=== PATIENT | female | born 1960 | race Caucasian/White ===

== ENCOUNTER 2019-09-14 08:05 | Inpatient (IN) | payer BC ==
[2019-09-14] MEDS ORDERED: Ondansetron 4 MG/2 ML SDV IVPUSH ONE (08:14)
[2019-09-14] MEDS ORDERED: Morphine 2 MG/ML Syringe IVPUSH ONE (08:14)
[2019-09-14] MEDS ORDERED: Sodium Chloride 0.9% 1,000 ML IV SCH ×2 (08:15→09:45)
[2019-09-14] MEDS: Sodium Chloride 0.9% 10 ML Syringe FLUSH PRN (08:24)
[2019-09-14] MEDS ORDERED: Iopamidol 755 Mg/ML 100 ML Bottle IV ONE (08:32)
--- NOTE | 2019-09-14 08:41 | EDM.PDOC ---
ED HPI GENERAL MEDICAL PROBLEM - General Stated Complaint: abdominal pain Time Seen by Provider: 09/14/19 08:10 Source of Information: Reports: Patient History Limitations: Reports: No Limitations - History of Present Illness INITIAL COMMENTS - FREE TEXT/NARRATIVE: Patient presented to the ED because of abdominal pain which started after eating dinner last night. The pain is sharp and cramping,10,10 with associated nausea and vomiting x3. There is no fever/chills or any urinary symptoms. Her last bowel movement was last night and it was "fibery" according to her. She had 2 previous intraabdominal surgeries-hysterectomy and cholecystectomy. She also has a history of SBO 8 years ago which was medically managed. abdomen, generalized Pain Score (Numeric/FACES): 3 - Related Data Allergies Allergy/AdvReac Type Severity Reaction Status Date / Time No Known Allergies Allergy Verified 09/14/19 08:13 Home Meds: Home Meds Bifidobacterium Infantis [Align] 1 tab PO DAILY 09/14/19 [History] Calcium Carb/Vitamin D3/Vit K1 [Calcium + D Soft Chewable Tab] 2 tab PO DAILY [History] Estrogens, Conjugated [Premarin] 0.625 mg PO DAILY 09/14/19 [History] Folic Acid/Multivit-Min/Lutein [Multi-Vitamin Gummies] 2 tab PO DAILY 09/14/19 [ History] Lysine 1 tab PO DAILY PRN 09/14/19 [History] estradioL [Estring] 2 mg VAG Q3M 09/14/19 [History] ED ROS GENERAL - Review of Systems Review Of Systems: See Below Constitutional: Reports: No Symptoms HEENT: Reports: No Symptoms Respiratory: Reports: No Symptoms Cardiovascular: Reports: No Symptoms Endocrine: Reports: No Symptoms GI/Abdominal: Reports: Abdominal Pain, Nausea, Vomiting : Reports: No Symptoms Musculoskeletal: Reports: No Symptoms Skin: Reports: No Symptoms Neurological: Reports: No Symptoms Psychiatric: Reports: No Symptoms Hematologic/Lymphatic: Reports: No Symptoms ED EXAM, GENERAL - Physical Exam Exam: See Below Exam Limited By: No Limitations General Appearance: Alert, No Apparent Distress Nose: Normal Inspection, Normal Mucosa Throat/Mouth: Normal Inspection, Normal Lips Head: Atraumatic, Normocephalic Neck: Normal Inspection, Supple, Non-Tender Respiratory/Chest: No Respiratory Distress, Lungs Clear, Normal Breath Sounds Cardiovascular: Normal Peripheral Pulses, Regular Rate, Rhythm, No Edema, No Gallop GI/Abdominal: Normal Bowel Sounds, No Organomegaly, Other (decreased bowel sound , diffuse tenderness) Back Exam: Normal Inspection, Full Range of Motion Extremities: Normal Inspection, Normal Range of Motion, Non-Tender Neurological: Alert, Oriented, CN II-XII Intact, Normal Cognition, Normal Gait Psychiatric: Normal Affect, Normal Mood Skin Exam: Warm, Dry, Intact, Normal Color, No Rash Course - Vital Signs Text/Narrative:: Labs/EKG/CXR/Abd CT was discussed with patient and verbalized full understanding NPO NS 1 L bolus Zofran 4 mg IV x1 Morphine 2 mg IV x1 NGT insertion Surgical consult with Dr Barba who agreed with the above management and will see the patient at noon today. Last Recorded V/S: Last Vital Signs Temp 36.6 C 09/15/19 12:00 Pulse 67 09/15/19 12:00 Resp 18 09/15/19 12:00 BP 142/81 H 09/15/19 12:00 Pulse Ox 99 09/15/19 12:00 - Orders/Labs/Meds Orders: Active Orders 24 hr Category Date Time Status Pantoprazole [ProTONIX IV] Med 09/14/19 13:00 Active 40 mg IVPUSH Q24H Medication Orders Sodium Chloride (Normal Saline) 1,000 mls @ 999 mls/hr IV ASDIRECTED [facility] Last Admin: 09/14/19 08:19 Dose: 999 mls/hr Potassium Cl/Dextrose/Lact Ringer's (D5 Lr With 20 Meq Kcl) 1,000 mls @ 125 mls /hr IV Q8H [facility] Last Admin: 09/15/19 12:48 Dose: 125 mls/hr Ketorolac Tromethamine (Toradol) 30 mg IVPUSH Q6H PRN PRN Reason: Abdominal Pain Stop: 09/19/19 12:39 Last Admin: 09/15/19 02:17 Dose: 30 mg Admin: 09/14/19 19:37 Dose: 30 mg Admin: 09/14/19 13:27 Dose: 30 mg Ondansetron HCl (Zofran) 4 mg IVPUSH Q4H PRN PRN Reason: Nausea/Vomiting Last Admin: 09/14/19 21:46 Dose: 4 mg Admin: 09/14/19 13:32 Dose: 4 mg Pantoprazole Sodium (Protonix Iv) 40 mg IVPUSH Q24H SHAUN Last Admin: 09/15/19 13:07 Dose: 40 mg Admin: 09/14/19 13:22 Dose: 40 mg Sodium Chloride (Saline Flush) 10 ml FLUSH ASDIRECTED PRN PRN Reason: Keep Vein Open Last Admin: 09/14/19 08:24 Dose: 10 ml Labs: Laboratory Tests 09/14/19 09/14/19 09/14/19 Range/Units 08:05 08:05 08:05 WBC 9.8 (4.5-12.0) X10-3/uL RBC 5.08 (3.23-5.20) x10(6)uL Hgb 15.4 (11.5-15.5) g/dL Hct 47.0 (30.0-51.3) % MCV 92.6 (80-96) fL MCH 30.2 (27.7-33.6) pg MCHC 32.7 (32.2-35.4) g/dL RDW 12.7 (11.5-15.5) % Plt Count 302 (125-369) X10(3)uL MPV 8.0 (7.4-10.4) fL Add Manual Diff Yes Neutrophils % (Manual) 88 H (46-82) % Band Neutrophils % 2 (0-6) % Lymphocytes % (Manual) 9 L (13-37) % Monocytes % (Manual) 1 L (4-12) % PT 9.8 (9.0-11.1) sec INR 0.90 L (1.00-1.24) APTT 22.5 L (24.4-33.2) SECONDS D-Dimer, Quantitative (0.0-0.59) mg/LFEU Sodium 136 (135-145) mmol/L Potassium 4.1 (3.5-5.3) mmol/L Chloride 101 (100-110) mmol/L Carbon Dioxide 23 (21-32) mmol/L BUN 14 (7-18) mg/dL Creatinine 0.9 (0.55-1.02) mg/dL Est Cr Clr Drug Dosing 51.92 mL/min Estimated GFR (MDRD) > 60 (>60) BUN/Creatinine Ratio 15.6 (9-20) Glucose 157 H (80-116) mg/dL Lactic Acid (0.4-2.0) mmol/L Calcium 9.2 (8.6-10.2) mg/dL Total Bilirubin 0.8 (0.1-1.3) mg/dL AST 30 H (5-25) IU/L ALT 30 (12-36) U/L Alkaline Phosphatase 88 (56-112) IU/L Troponin I (4.0-60.3) pg/mL NT-Pro-B Natriuret Pep (<=125) pg/mL Total Protein 7.9 (6.0-8.0) g/dL Albumin 4.0 (3.2-4.6) g/dL Globulin 3.9 g/dL Albumin/Globulin Ratio 1.0 Amylase (25-115) U/L Lipase (73-393) U/L 09/14/19 09/14/19 09/14/19 Range/Units 08:05 08:05 08:05 WBC (4.5-12.0) X10-3/uL RBC (3.23-5.20) x10(6)uL Hgb (11.5-15.5) g/dL Hct (30.0-51.3) % MCV (80-96) fL MCH (27.7-33.6) pg MCHC (32.2-35.4) g/dL RDW (11.5-15.5) % Plt Count (125-369) X10(3)uL MPV (7.4-10.4) fL Add Manual Diff Neutrophils % (Manual) (46-82) % Band Neutrophils % (0-6) % Lymphocytes % (Manual) (13-37) % Monocytes % (Manual) (4-12) % PT (9.0-11.1) sec INR (1.00-1.24) APTT (24.4-33.2) SECONDS D-Dimer, Quantitative 1.73 H (0.0-0.59) mg/LFEU Sodium (135-145) mmol/L Potassium (3.5-5.3) mmol/L Chloride (100-110) mmol/L Carbon Dioxide (21-32) mmol/L BUN (7-18) mg/dL Creatinine (0.55-1.02) mg/dL Est Cr Clr Drug Dosing mL/min Estimated GFR (MDRD) (>60) BUN/Creatinine Ratio (9-20) Glucose (80-116) mg/dL Lactic Acid (0.4-2.0) mmol/L Calcium (8.6-10.2) mg/dL Total Bilirubin (0.1-1.3) mg/dL AST (5-25) IU/L ALT (12-36) U/L Alkaline Phosphatase (56-112) IU/L Troponin I < 4.0 L (4.0-60.3) pg/mL NT-Pro-B Natriuret Pep 95 (<=125) pg/mL Total Protein (6.0-8.0) g/dL Albumin (3.2-4.6) g/dL Globulin g/dL Albumin/Globulin Ratio Amylase 49 (25-115) U/L Lipase (73-393) U/L 09/14/19 09/14/19 09/14/19 Range/Units 08:05 08:05 11:35 WBC (4.5-12.0) X10-3/uL RBC (3.23-5.20) x10(6)uL Hgb (11.5-15.5) g/dL Hct (30.0-51.3) % MCV (80-96) fL MCH (27.7-33.6) pg MCHC (32.2-35.4) g/dL RDW (11.5-15.5) % Plt Count (125-369) X10(3)uL MPV (7.4-10.4) fL Add Manual Diff Neutrophils % (Manual) (46-82) % Band Neutrophils % (0-6) % Lymphocytes % (Manual) (13-37) % Monocytes % (Manual) (4-12) % PT (9.0-11.1) sec INR (1.00-1.24) APTT (24.4-33.2) SECONDS D-Dimer, Quantitative (0.0-0.59) mg/LFEU Sodium (135-145) mmol/L Potassium (3.5-5.3) mmol/L Chloride (100-110) mmol/L Carbon Dioxide (21-32) mmol/L BUN (7-18) mg/dL Creatinine (0.55-1.02) mg/dL Est Cr Clr Drug Dosing mL/min Estimated GFR (MDRD) (>60) BUN/Creatinine Ratio (9-20) Glucose (80-116) mg/dL Lactic Acid 2.8 H* 1.4 (0.4-2.0) mmol/L Calcium (8.6-10.2) mg/dL Total Bilirubin (0.1-1.3) mg/dL AST (5-25) IU/L ALT (12-36) U/L Alkaline Phosphatase (56-112) IU/L Troponin I (4.0-60.3) pg/mL NT-Pro-B Natriuret Pep (<=125) pg/mL Total Protein (6.0-8.0) g/dL Albumin (3.2-4.6) g/dL Globulin g/dL Albumin/Globulin Ratio Amylase (25-115) U/L Lipase 96 (73-393) U/L Meds: Medications Generic Name Dose Route Start Last Admin Trade Name Freq PRN Reason Stop Dose Admin Sodium Chloride 1,000 mls @ 999 mls/hr 09/14/19 08:15 09/14/19 08:19 Normal Saline IV 999 mls/hr ASDIRECTED SHAUN Administration Potassium Cl/Dextrose/Lact Ringer's 1,000 mls @ 125 mls/hr 09/15/19 12:15 01/24 12:48 D5 Lr With 20 Meq Kcl IV 125 mls/hr Q8H SHAUN Administration Ketorolac Tromethamine 30 mg 09/14/19 12:38 09/15/19 02:17 Toradol IVPUSH 09/19/19 12:39 30 mg Q6H PRN Administration Abdominal Pain Ondansetron HCl 4 mg 09/14/19 10:17 09/14/19 21:46 Zofran IVPUSH 4 mg Q4H PRN Administration Nausea/Vomiting Pantoprazole Sodium 40 mg 09/14/19 13:00 09/15/19 13:07 Protonix Iv IVPUSH 40 mg Q24H SHAUN Administration Sodium Chloride 10 ml 09/14/19 08:08 09/14/19 08:24 Saline Flush FLUSH 10 ml ASDIRECTED PRN Administration Keep Vein Open Discontinued Medications Generic Name Dose Route Start Last Admin Trade Name Freq PRN Reason Stop Dose Admin Sodium Chloride 1,000 mls @ 150 mls/hr 09/14/19 09:45 09/14/19 09:57 Normal Saline IV 150 mls/hr ASDIRECTED SHAUN Administration Sodium Chloride 1,000 mls @ 150 mls/hr 09/14/19 10:30 09/15/19 05:20 Normal Saline IV 150 mls/hr ASDIRECTED SHAUN Administration Iopamidol 100 ml 09/14/19 08:32 09/14/19 08:48 Isovue-370 (76%) IV 09/14/19 08:33 79 ml . DIRECTED ONE Administration Lidocaine HCl 6 ml 09/14/19 09:26 09/14/19 09:20 Glydo .XX 09/14/19 09:27 6 ml NOW STA Administration Morphine Sulfate 2 mg 09/14/19 08:14 09/14/19 08:21 Morphine IVPUSH 09/14/19 08:15 2 mg ONETIME ONE Administration Ondansetron HCl 4 mg 09/14/19 08:14 09/14/19 08:22 Zofran IVPUSH 09/14/19 08:15 4 mg ONETIME ONE Administration Departure - Departure Time of Disposition: 09:40 Disposition: Refer to Observation Condition: Good Clinical Impression: SBO (small bowel obstruction) - Discharge Information Sepsis Event Note - Focused Exam Date Exam was Performed: 09/15/19 Time Exam was Performed: 13:39
[2019-09-14] MEDS ORDERED: Lidocaine 2% HCl 6 ML JEL.PF.APP STA (09:26)
--- NOTE | 2019-09-14 09:52 | CR ---
INDICATION: Chest pain, dyspnea. CHEST, 1 VIEW: AP portable upright view of the chest was obtained 09/14/19 - no comparison. The heart appears to be normal in size or near the upper limits of normal in size. The aorta is slightly tortuous with minimal calcifications suggested in the arch. An active infiltrate or effusion was not identified. IMPRESSION: No acute process. MTDD
--- NOTE | 2019-09-14 12:33 | PCM.CONS ---
H&P History of Present Illness - General Date of Service: 09/14/19 Admit Problem/Dx: Admission Diagnosis/Problem Admission Diagnosis/Problem Small bowel obstruction Source of Information: Patient, Old Records History Limitations: Reports: No Limitations - History of Present Illness Symptom Onset Date: 09/13/19 Duration of Symptoms: Reports: Day(s): (Since after supper last pm.) Location: Reports: Abdomen Quality: Reports: Pressure Severity: Moderate Improves with: Reports: None Worsens with: Reports: None Associated Symptoms: Reports: Nausea/Vomiting (Last on this am after NG tube was alredy in.) Other HPI/Comments: Has SBO around 8 yrs ago and was hospitalized in [facility] and resolved with conservative measures. abdomen, generalized Pain Score (Numeric/FACES): 5 - Related Data Allergies/Adverse Reactions: Allergies Allergy/AdvReac Type Severity Reaction Status Date / Time No Known Allergies Allergy Verified 09/14/19 08:13 Home Medications: Home Meds Bifidobacterium Infantis [Align] 1 tab PO DAILY 09/14/19 [History] Calcium Carb/Vitamin D3/Vit K1 [Calcium + D Soft Chewable Tab] 2 tab PO DAILY [History] Estrogens, Conjugated [Premarin] 0.625 mg PO DAILY 09/14/19 [History] Folic Acid/Multivit-Min/Lutein [Multi-Vitamin Gummies] 2 tab PO DAILY 09/14/19 [ History] Lysine 1 tab PO DAILY PRN 09/14/19 [History] estradioL [Estring] 2 mg VAG Q3M 09/14/19 [History] Past Medical History Gastrointestinal History: Reports: Bowel Obstruction, Irritable Bowel Syndrome [employer] History: Reports: - Infectious Disease History Infectious Disease History: Reports: Chicken Pox - Past Surgical History GI Surgical History: Reports: Cholecystectomy, Colonoscopy Female Surgical History: Reports: Hysterectomy Musculoskeletal Surgical History: Reports: Shoulder Surgery, Other (See Below) Other Musculoskeletal Surgeries/Procedures:: Shoulder surgery x2 Social & Family History - Family History Family Medical History: Noncontributory - Tobacco Use Smoking Status *Q: Never Smoker Second Hand Smoke Exposure: No - Caffeine Use Caffeine Use: Reports: None - Recreational Drug Use Recreational Drug Use: No H&P Review of Systems - Review of Systems: Review Of Systems: See Below General: Denies: Fever, Chills Pulmonary: Reports: No Symptoms Cardiovascular: Reports: Other (Some pressure in epigastric area) Gastrointestinal: Reports: Abdominal Pain, Distension (she feels is less than when she came in), Other (Last BM yesterday, no flatus today) Genitourinary: Reports: No Symptoms Exam - Exam Exam: See Below - Vital Signs Vital Signs: Last Vital Signs Temp 97.5 F 09/14/19 08:05 Pulse 87 09/14/19 10:59 Resp 16 09/14/19 10:59 BP 148/76 H 09/14/19 10:59 Pulse Ox 97 09/14/19 10:59 Weight: 74.298 kg - Exam General: Alert, Oriented, Mild Distress Lungs: Clear to Auscultation, Normal Respiratory Effort Cardiovascular: Regular Rate, Regular Rhythm GI/Abdominal Exam: Soft, Distended (mild), Tender (mild). No: Rebound, Hernia, Mass - Patient Data Lab Results Last 24 hrs: Laboratory Results - last 24 hr 09/14/19 09/14/19 09/14/19 Range/Units 08:05 08:05 08:05 WBC 9.8 (4.5-12.0) X10-3/uL RBC 5.08 (3.23-5.20) x10(6)uL Hgb 15.4 (11.5-15.5) g/dL Hct 47.0 (30.0-51.3) % MCV 92.6 (80-96) fL MCH 30.2 (27.7-33.6) pg MCHC 32.7 (32.2-35.4) g/dL RDW 12.7 (11.5-15.5) % Plt Count 302 (125-369) X10(3)uL MPV 8.0 (7.4-10.4) fL Add Manual Diff Yes Neutrophils % (Manual) 88 H (46-82) % Band Neutrophils % 2 (0-6) % Lymphocytes % (Manual) 9 L (13-37) % Monocytes % (Manual) 1 L (4-12) % PT 9.8 (9.0-11.1) sec INR 0.90 L (1.00-1.24) APTT 22.5 L (24.4-33.2) SECONDS D-Dimer, Quantitative (0.0-0.59) mg/LFEU Sodium 136 (135-145) mmol/L Potassium 4.1 (3.5-5.3) mmol/L Chloride 101 (100-110) mmol/L Carbon Dioxide 23 (21-32) mmol/L BUN 14 (7-18) mg/dL Creatinine 0.9 (0.55-1.02) mg/dL Est Cr Clr Drug Dosing 51.92 mL/min Estimated GFR (MDRD) > 60 (>60) BUN/Creatinine Ratio 15.6 (9-20) Glucose 157 H (80-116) mg/dL Lactic Acid (0.4-2.0) mmol/L Calcium 9.2 (8.6-10.2) mg/dL Total Bilirubin 0.8 (0.1-1.3) mg/dL AST 30 H (5-25) IU/L ALT 30 (12-36) U/L Alkaline Phosphatase 88 (56-112) IU/L Troponin I (4.0-60.3) pg/mL NT-Pro-B Natriuret Pep (<=125) pg/mL Total Protein 7.9 (6.0-8.0) g/dL Albumin 4.0 (3.2-4.6) g/dL Globulin 3.9 g/dL Albumin/Globulin Ratio 1.0 Amylase (25-115) U/L Lipase (73-393) U/L 09/14/19 09/14/19 09/14/19 Range/Units 08:05 08:05 08:05 WBC (4.5-12.0) X10-3/uL RBC (3.23-5.20) x10(6)uL Hgb (11.5-15.5) g/dL Hct (30.0-51.3) % MCV (80-96) fL MCH (27.7-33.6) pg MCHC (32.2-35.4) g/dL RDW (11.5-15.5) % Plt Count (125-369) X10(3)uL MPV (7.4-10.4) fL Add Manual Diff Neutrophils % (Manual) (46-82) % Band Neutrophils % (0-6) % Lymphocytes % (Manual) (13-37) % Monocytes % (Manual) (4-12) % PT (9.0-11.1) sec INR (1.00-1.24) APTT (24.4-33.2) SECONDS D-Dimer, Quantitative 1.73 H (0.0-0.59) mg/LFEU Sodium (135-145) mmol/L Potassium (3.5-5.3) mmol/L Chloride (100-110) mmol/L Carbon Dioxide (21-32) mmol/L BUN (7-18) mg/dL Creatinine (0.55-1.02) mg/dL Est Cr Clr Drug Dosing mL/min Estimated GFR (MDRD) (>60) BUN/Creatinine Ratio (9-20) Glucose (80-116) mg/dL Lactic Acid (0.4-2.0) mmol/L Calcium (8.6-10.2) mg/dL Total Bilirubin (0.1-1.3) mg/dL AST (5-25) IU/L ALT (12-36) U/L Alkaline Phosphatase (56-112) IU/L Troponin I < 4.0 L (4.0-60.3) pg/mL NT-Pro-B Natriuret Pep 95 (<=125) pg/mL Total Protein (6.0-8.0) g/dL Albumin (3.2-4.6) g/dL Globulin g/dL Albumin/Globulin Ratio Amylase 49 (25-115) U/L Lipase (73-393) U/L 09/14/19 09/14/19 09/14/19 Range/Units 08:05 08:05 11:35 WBC (4.5-12.0) X10-3/uL RBC (3.23-5.20) x10(6)uL Hgb (11.5-15.5) g/dL Hct (30.0-51.3) % MCV (80-96) fL MCH (27.7-33.6) pg MCHC (32.2-35.4) g/dL RDW (11.5-15.5) % Plt Count (125-369) X10(3)uL MPV (7.4-10.4) fL Add Manual Diff Neutrophils % (Manual) (46-82) % Band Neutrophils % (0-6) % Lymphocytes % (Manual) (13-37) % Monocytes % (Manual) (4-12) % PT (9.0-11.1) sec INR (1.00-1.24) APTT (24.4-33.2) SECONDS D-Dimer, Quantitative (0.0-0.59) mg/LFEU Sodium (135-145) mmol/L Potassium (3.5-5.3) mmol/L Chloride (100-110) mmol/L Carbon Dioxide (21-32) mmol/L BUN (7-18) mg/dL Creatinine (0.55-1.02) mg/dL Est Cr Clr Drug Dosing mL/min Estimated GFR (MDRD) (>60) BUN/Creatinine Ratio (9-20) Glucose (80-116) mg/dL Lactic Acid 2.8 H* 1.4 (0.4-2.0) mmol/L Calcium (8.6-10.2) mg/dL Total Bilirubin (0.1-1.3) mg/dL AST (5-25) IU/L ALT (12-36) U/L Alkaline Phosphatase (56-112) IU/L Troponin I (4.0-60.3) pg/mL NT-Pro-B Natriuret Pep (<=125) pg/mL Total Protein (6.0-8.0) g/dL Albumin (3.2-4.6) g/dL Globulin g/dL Albumin/Globulin Ratio Amylase (25-115) U/L Lipase 96 (73-393) U/L Result Diagrams: 09/14/19 08:05 09/14/19 08:05 Imaging Impressions Last 24 hrs: CT scan shows SBO Sepsis Event Note - Evaluation Sepsis Screening Result: No Definite Risk - Focused Exam Vital Signs: Vital Signs Temp Pulse Resp BP Pulse Ox 09/14/19 10:59 87 16 148/76 H 97 09/14/19 10:50 85 16 158/95 H 99 09/14/19 08:05 97.5 F 64 12 144/97 H 98 Date Exam was Performed: 09/14/19 Time Exam was Performed: 12:28 Consult PN Assessment/Plan Problem List Initiated/Reviewed/Updated: Yes My Orders Last 24 Hours: My Active Orders 09/14/19 12:25 KUB [Abdomen 1V Flat] [CR] Stat Plan: Will treat with IV fluids and NG suction, AXR to check NG placement Recheck labs in am
[2019-09-14] MEDS: Pantoprazole 40 MG Vial IVPUSH SCH (13:22)
--- NOTE | 2019-09-14 13:23 | CR ---
INDICATION: NG placement. ABDOMEN, 1 VIEW: A nasogastric tube is noted coiled once in the gastric fundus with the tip extending into the gastric body area. Contrast is noted in the pyelocalyceal systems compatible with recent IV contrast injection for CT of the abdomen. Clips are noted compatible with cholecystectomy. The supine portable view of the abdomen did not include the entire pelvis as it was for the indication of nasogastric tube placement. The pattern of gas and feces as visualized appeared grossly normal. IMPRESSION: Nasogastric tube tip in the gastric body. MTDD
[2019-09-14] MEDS: Ketorolac 30 MG/ML SDV IVPUSH PRN ×2 (13:27→19:37)
[2019-09-14] MEDS: Ondansetron 4 MG/2 ML SDV IVPUSH PRN ×2 (13:32→21:46)
--- NOTE | 2019-09-14 14:37 | PCM.HP.2 ---
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 Associated with vomiting x 3. Nothing seems to help. Passed normal stool yesterday. Apparently had a similar presentation 8 years ago. Has had STEPHANIE and ELIZABETH. abdomen, generalized Pain Score (Numeric/FACES): 5 - Related Data Allergies/Adverse Reactions: Allergies Allergy/AdvReac Type Severity Reaction Status Date / Time No Known Allergies Allergy Verified 09/14/19 08:13 Home Medications: Home Meds Bifidobacterium Infantis [Align] 1 tab PO DAILY 09/14/19 [History] Calcium Carb/Vitamin D3/Vit K1 [Calcium + D Soft Chewable Tab] 2 tab PO DAILY [History] Estrogens, Conjugated [Premarin] 0.625 mg PO DAILY 09/14/19 [History] Folic Acid/Multivit-Min/Lutein [Multi-Vitamin Gummies] 2 tab PO DAILY 09/14/19 [ History] Lysine 1 tab PO DAILY PRN 09/14/19 [History] estradioL [Estring] 2 mg VAG Q3M 09/14/19 [History] Past Medical History Gastrointestinal History: Reports: Bowel Obstruction, Irritable Bowel Syndrome 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: Reports: - Infectious Disease History Infectious Disease History: Reports: Chicken Pox - Past Surgical History GI Surgical History: Reports: Cholecystectomy, Colonoscopy Female Surgical History: Reports: Hysterectomy Musculoskeletal Surgical History: Reports: Shoulder Surgery, Other (See Below) Other Musculoskeletal Surgeries/Procedures:: Shoulder surgery x2 Social & Family History - Family History Family Medical History: Noncontributory - Tobacco Use Smoking Status *Q: Never Smoker Second Hand Smoke Exposure: No - Caffeine Use Caffeine Use: Reports: None - Recreational Drug Use Recreational Drug Use: No H&P Review of Systems - Review of Systems: Review Of Systems: Comprehensive ROS is negative, except as noted in HPI. Exam - Exam Exam: See Below - Vital Signs Vital Signs: Last Vital Signs Temp 97.5 F 09/14/19 08:05 Pulse 87 09/14/19 10:59 Resp 16 09/14/19 10:59 BP 148/76 H 09/14/19 10:59 Pulse Ox 97 09/14/19 10:59 Weight: 74.298 kg - Exam General: Alert, Oriented, 4 HEENT: PERRLA, Hearing Intact, Mucosa Moist & [place], Nares Patent, Normal Nasal Septum, Posterior Pharynx Clear, Conjunctiva Clear, EOMI, EACs Clear, TMs Clear Neck: Supple, Trachea Midline, 2 Lungs: Clear to Auscultation, Normal Respiratory Effort Cardiovascular: Regular Rate, Regular Rhythm GI/Abdominal Exam: Soft, Tender (RLQ), Abnormal Bowel Sounds (Female) Exam: Deferred Rectal (Female) Exam: Deferred Back Exam: Normal Inspection, Full Range of Motion, NT Extremities: Normal Inspection, Normal Range of Motion, Non-Tender, No Pedal Edema, Normal Capillary Refill Skin: Warm, Dry, Intact Neurological: Cranial Nerves Intact, Reflexes Equal Bilateral Neuro Extensive - Mental Status: Alert, Oriented x3, Normal Mood/Affect, Normal Cognition Neuro Extensive - Motor, Sensory, Reflexes: CN II-XII Intact, Normal Gait, Normal Reflexes Psychiatric: Alert, Normal Affect, Normal Mood - Patient Data Lab Results Last 24 hrs: Laboratory Results - last 24 hr 09/14/19 09/14/19 09/14/19 Range/Units 08:05 08:05 08:05 WBC 9.8 (4.5-12.0) X10-3/uL RBC 5.08 (3.23-5.20) x10(6)uL Hgb 15.4 (11.5-15.5) g/dL Hct 47.0 (30.0-51.3) % MCV 92.6 (80-96) fL MCH 30.2 (27.7-33.6) pg MCHC 32.7 (32.2-35.4) g/dL RDW 12.7 (11.5-15.5) % Plt Count 302 (125-369) X10(3)uL MPV 8.0 (7.4-10.4) fL Add Manual Diff Yes Neutrophils % (Manual) 88 H (46-82) % Band Neutrophils % 2 (0-6) % Lymphocytes % (Manual) 9 L (13-37) % Monocytes % (Manual) 1 L (4-12) % PT 9.8 (9.0-11.1) sec INR 0.90 L (1.00-1.24) APTT 22.5 L (24.4-33.2) SECONDS D-Dimer, Quantitative (0.0-0.59) mg/LFEU Sodium 136 (135-145) mmol/L Potassium 4.1 (3.5-5.3) mmol/L Chloride 101 (100-110) mmol/L Carbon Dioxide 23 (21-32) mmol/L BUN 14 (7-18) mg/dL Creatinine 0.9 (0.55-1.02) mg/dL Est Cr Clr Drug Dosing 51.92 mL/min Estimated GFR (MDRD) > 60 (>60) BUN/Creatinine Ratio 15.6 (9-20) Glucose 157 H (80-116) mg/dL Lactic Acid (0.4-2.0) mmol/L Calcium 9.2 (8.6-10.2) mg/dL Total Bilirubin 0.8 (0.1-1.3) mg/dL AST 30 H (5-25) IU/L ALT 30 (12-36) U/L Alkaline Phosphatase 88 (56-112) IU/L Troponin I (4.0-60.3) pg/mL NT-Pro-B Natriuret Pep (<=125) pg/mL Total Protein 7.9 (6.0-8.0) g/dL Albumin 4.0 (3.2-4.6) g/dL Globulin 3.9 g/dL Albumin/Globulin Ratio 1.0 Amylase (25-115) U/L Lipase (73-393) U/L 09/14/19 09/14/19 09/14/19 Range/Units 08:05 08:05 08:05 WBC (4.5-12.0) X10-3/uL RBC (3.23-5.20) x10(6)uL Hgb (11.5-15.5) g/dL Hct (30.0-51.3) % MCV (80-96) fL MCH (27.7-33.6) pg MCHC (32.2-35.4) g/dL RDW (11.5-15.5) % Plt Count (125-369) X10(3)uL MPV (7.4-10.4) fL Add Manual Diff Neutrophils % (Manual) (46-82) % Band Neutrophils % (0-6) % Lymphocytes % (Manual) (13-37) % Monocytes % (Manual) (4-12) % PT (9.0-11.1) sec INR (1.00-1.24) APTT (24.4-33.2) SECONDS D-Dimer, Quantitative 1.73 H (0.0-0.59) mg/LFEU Sodium (135-145) mmol/L Potassium (3.5-5.3) mmol/L Chloride (100-110) mmol/L Carbon Dioxide (21-32) mmol/L BUN (7-18) mg/dL Creatinine (0.55-1.02) mg/dL Est Cr Clr Drug Dosing mL/min Estimated GFR (MDRD) (>60) BUN/Creatinine Ratio (9-20) Glucose (80-116) mg/dL Lactic Acid (0.4-2.0) mmol/L Calcium (8.6-10.2) mg/dL Total Bilirubin (0.1-1.3) mg/dL AST (5-25) IU/L ALT (12-36) U/L Alkaline Phosphatase (56-112) IU/L Troponin I < 4.0 L (4.0-60.3) pg/mL NT-Pro-B Natriuret Pep 95 (<=125) pg/mL Total Protein (6.0-8.0) g/dL Albumin (3.2-4.6) g/dL Globulin g/dL Albumin/Globulin Ratio Amylase 49 (25-115) U/L Lipase (73-393) U/L 09/14/19 09/14/19 09/14/19 Range/Units 08:05 08:05 11:35 WBC (4.5-12.0) X10-3/uL RBC (3.23-5.20) x10(6)uL Hgb (11.5-15.5) g/dL Hct (30.0-51.3) % MCV (80-96) fL MCH (27.7-33.6) pg MCHC (32.2-35.4) g/dL RDW (11.5-15.5) % Plt Count (125-369) X10(3)uL MPV (7.4-10.4) fL Add Manual Diff Neutrophils % (Manual) (46-82) % Band Neutrophils % (0-6) % Lymphocytes % (Manual) (13-37) % Monocytes % (Manual) (4-12) % PT (9.0-11.1) sec INR (1.00-1.24) APTT (24.4-33.2) SECONDS D-Dimer, Quantitative (0.0-0.59) mg/LFEU Sodium (135-145) mmol/L Potassium (3.5-5.3) mmol/L Chloride (100-110) mmol/L Carbon Dioxide (21-32) mmol/L BUN (7-18) mg/dL Creatinine (0.55-1.02) mg/dL Est Cr Clr Drug Dosing mL/min Estimated GFR (MDRD) (>60) BUN/Creatinine Ratio (9-20) Glucose (80-116) mg/dL Lactic Acid 2.8 H* 1.4 (0.4-2.0) mmol/L Calcium (8.6-10.2) mg/dL Total Bilirubin (0.1-1.3) mg/dL AST (5-25) IU/L ALT (12-36) U/L Alkaline Phosphatase (56-112) IU/L Troponin I (4.0-60.3) pg/mL NT-Pro-B Natriuret Pep (<=125) pg/mL Total Protein (6.0-8.0) g/dL Albumin (3.2-4.6) g/dL Globulin g/dL Albumin/Globulin Ratio Amylase (25-115) U/L Lipase 96 (73-393) U/L Result Diagrams: 09/14/19 08:05 09/14/19 08:05 Sepsis Event Note - Evaluation Sepsis Screening Result: No Definite Risk - Focused Exam Vital Signs: Vital Signs Temp Pulse Resp BP Pulse Ox 09/14/19 10:59 87 16 148/76 H 97 09/14/19 10:50 85 16 158/95 H 99 09/14/19 08:05 97.5 F 64 12 144/97 H 98 Date Exam was Performed: 09/14/19 Time Exam was Performed: 14:33 - Problem List (1) SBO (small bowel obstruction) SNOMED Code(s): 772499811 ICD Code: K56.609 - UNSP INTESTNL OBST, UNSP TO PARTIAL VERSUS COMPLETE OBST Status: Acute Current Visit: Yes Problem List Initiated/Reviewed/Updated: Yes Orders Last 24hrs: Active Orders 24 hr Category Date Time Status Patient Status [ADT] Routine ADT 09/14/19 10:17 Active Antiembolic Devices [RC] .Routine Care 09/14/19 10:19 Active EKG Documentation Completion [RC] ASDIRECTED Care 09/14/19 08:09 Active NG [Gastrointestinal Tube Mgmt] [RC] QSHIFT Care 09/14/19 09:30 Active Oxygen Therapy [RC] PRN Care 09/14/19 10:20 Active Pulse Oximetry [RC] PRN Care 09/14/19 10:17 Active VTE/DVT Education [RC] Click to Edit Care 09/14/19 10:19 Active Vital Signs [RC] 00,04,08,12,16,20 Care 09/14/19 10:17 Active Nothing per Oral Now Diet [DIET] Diet 09/14/19 Breakfast Ordered Abdomen Pelvis w Cont [CT] Stat Exams 09/14/19 08:11 Taken BASIC METABOLIC PANEL,BMP [CHEM] AM Lab 09/15/19 05:11 Ordered CBC WITH AUTO DIFF [HEME] AM Lab 09/15/19 05:11 Ordered COMPREHENSIVE METABOLIC PN,CMP [CHEM] AM Lab 09/15/19 05:11 Ordered LACTIC ACID [CHEM] Routine Lab 09/15/19 07:00 Ordered Ketorolac [Toradol] Med 09/14/19 12:38 Active 30 mg IVPUSH Q6H PRN Ondansetron [Zofran] Med 09/14/19 10:17 Active 4 mg IVPUSH Q4H PRN Pantoprazole [ProTONIX IV] Med 09/14/19 13:00 Active 40 mg IVPUSH Q24H Sodium Chloride 0.9% [Normal Saline] 1,000 ml Med 09/14/19 08:15 Active IV ASDIRECTED Sodium Chloride 0.9% [Normal Saline] 1,000 ml Med 09/14/19 09:45 Active IV ASDIRECTED Sodium Chloride 0.9% [Normal Saline] 1,000 ml Med 09/14/19 10:30 Active IV ASDIRECTED Sodium Chloride 0.9% [Saline Flush] Med 09/14/19 08:08 Active 10 ml FLUSH ASDIRECTED PRN DVT/VTE Prophylaxis Reflex [OM.PC] Per Unit Routine Oth 09/14/19 10:17 Ordered NG [Nasogastric Orogastric Tube Insertion] [OM.PC] Oth 09/14/19 09:30 Ordered Routine Saline Lock Insert [OM.PC] Routine Oth 09/14/19 08:08 Ordered Resuscitation Status Routine Resus Stat 09/14/19 10:17 Ordered EKG 12 Lead [EK] Routine Ther 09/14/19 08:08 Ordered Medication Orders Sodium Chloride (Normal Saline) 1,000 mls @ 999 mls/hr IV ASDIRECTED [facility] Last Admin: 09/14/19 08:19 Dose: 999 mls/hr Sodium Chloride (Normal Saline) 1,000 mls @ 150 mls/hr IV ASDIRECTED [facility] Last Admin: 09/14/19 09:57 Dose: 150 mls/hr Sodium Chloride (Normal Saline) 1,000 mls @ 150 mls/hr IV ASDIRECTED [facility] Ketorolac Tromethamine (Toradol) 30 mg IVPUSH Q6H PRN PRN Reason: Abdominal Pain Stop: 09/19/19 12:39 Last Admin: 09/14/19 13:27 Dose: 30 mg Ondansetron HCl (Zofran) 4 mg IVPUSH Q4H PRN PRN Reason: Nausea/Vomiting Last Admin: 09/14/19 13:32 Dose: 4 mg Pantoprazole Sodium (Protonix Iv) 40 mg IVPUSH Q24H [facility] Last Admin: 09/14/19 13:22 Dose: 40 mg Sodium Chloride (Saline Flush) 10 ml FLUSH ASDIRECTED PRN PRN Reason: Keep Vein Open Last Admin: 09/14/19 08:24 Dose: 10 ml Assessment/Plan Comment:: CT does show distal SBO. Possibly by a stricture. Dr Kolb has been consulted. Continue care.
[2019-09-14] MEDS: Sodium Chloride 0.9% 1,000 ML IV SCH ×2 (16:00→22:43)
[2019-09-15] MEDS: Ketorolac 30 MG/ML SDV IVPUSH PRN (02:17)
[2019-09-15] MEDS: Sodium Chloride 0.9% 1,000 ML IV SCH (05:20)
--- NOTE | 2019-09-15 10:35 | CR ---
INDICATION: Abdomen pain, bloating, small bowel obstruction. ABDOMEN, TWO VIEWS: Five images of the abdomen were obtained in supine and upright projections 09/15/19 and compared with 09/14/19 again revealing nasogastric tube in place with its in the distal gastric body. There remain multiple loops of dilated small bowel with air-fluid levels compatible with a distal small bowel obstruction at the level of the distal ileum. This likely is in the right lower quadrant. A specific mass lesion was not identified. No evidence of free air was seen. There appears to be some pleural parenchymal change at the right lung base and minimal parenchymal change at the left lung base which could be on the basis of areas of atelectasis as well as possibly minimal pneumonia and pleuritis on the right. No additional organomegaly, mass lesions or pathologic calcifications were noted. IMPRESSION: 1. Findings remain compatible with obstruction of the small bowel, possibly partial or early in the area of the right lower quadrant - distal ileum. 2. Cannot exclude minimal pleural parenchymal changes at the lung bases. 3. Nasogastric tube remains in place. MTDD
[2019-09-15] MEDS ORDERED: Dextrose 5%-Lact Ringers w/KCl 1,000 ML IV SCH (12:15)
[2019-09-15] MEDS: Pantoprazole 40 MG Vial IVPUSH SCH (13:07)
--- NOTE | 2019-09-15 15:17 | PCM.PN ---
- General Info Date of Service: 09/15/19 Subjective Update: Much better today.Passed some stool.Gastric tube output about 400 ml - Review of Systems Pulmonary: Reports: No Symptoms Cardiovascular: Reports: No Symptoms Musculoskeletal: Reports: No Symptoms - Patient Data Vitals - Most Recent: Last Vital Signs Temp 97.9 F 09/15/19 12:00 Pulse 67 09/15/19 12:00 Resp 18 09/15/19 12:00 BP 142/81 H 09/15/19 12:00 Pulse Ox 99 09/15/19 12:00 Weight - Most Recent: 74.298 kg I&O - Last 24 Hours: Intake & Output 09/15/19 09/15/19 09/15/19 06:59 14:59 22:59 Intake Total 1207 929 Output Total 150 Balance 1057 929 Lab Results Last 24 Hours: Laboratory Results - last 24 hr 09/15/19 09/15/19 09/15/19 Range/Units 06:30 06:30 06:30 WBC 8.5 (4.5-12.0) X10-3/uL RBC 4.21 (3.23-5.20) x10(6)uL Hgb 13.1 (11.5-15.5) g/dL Hct 39.1 (30.0-51.3) % MCV 93.0 (80-96) fL MCH 31.0 (27.7-33.6) pg MCHC 33.3 (32.2-35.4) g/dL RDW 12.6 (11.5-15.5) % Plt Count 239 (125-369) X10(3)uL MPV 8.1 (7.4-10.4) fL Neut % (Auto) 80.5 (46-82) % Lymph % (Auto) 13.0 (13-37) % Louisa % (Auto) 5.1 (4-12) % Eos % (Auto) 1 (1.0-5.0) % Baso % (Auto) 0 (0-2) % Neut # (Auto) 6.9 (1.6-8.3) # Lymph # (Auto) 1.1 (0.6-5.0) # Louisa # (Auto) 0.4 (0.0-1.3) # Eos # (Auto) 0.1 (0.0-0.8) # Baso # (Auto) 0.0 (0.0-0.2) # Sodium 142 (135-145) mmol/L Potassium 3.7 (3.5-5.3) mmol/L Chloride 110 D (100-110) mmol/L Carbon Dioxide 24 (21-32) mmol/L BUN 14 (7-18) mg/dL Creatinine 0.6 (0.55-1.02) mg/dL Est Cr Clr Drug Dosing 77.88 mL/min Estimated GFR (MDRD) > 60 (>60) BUN/Creatinine Ratio 23.3 H (9-20) Glucose 83 (80-116) mg/dL Lactic Acid 0.7 (0.4-2.0) mmol/L Calcium 7.2 L D (8.6-10.2) mg/dL Total Bilirubin 0.8 (0.1-1.3) mg/dL AST 24 D (5-25) IU/L ALT 24 D (12-36) U/L Alkaline Phosphatase 54 L (56-112) IU/L Total Protein 5.3 L (6.0-8.0) g/dL Albumin 2.5 L (3.2-4.6) g/dL Globulin 2.8 g/dL Albumin/Globulin Ratio 0.9 Med Orders - Current: Current Medications Sodium Chloride (Normal Saline) 1,000 mls @ 999 mls/hr IV [facility]RECTED [facility] Last Admin: 09/14/19 08:19 Dose: 999 mls/hr Potassium Cl/Dextrose/Lact Ringer's (D5 Lr With 20 Meq Kcl) 1,000 mls @ 125 mls /hr IV Q8H [facility] Last Admin: 09/15/19 12:48 Dose: 125 mls/hr Ketorolac Tromethamine (Toradol) 30 mg IVPUSH Q6H PRN PRN Reason: Abdominal Pain Stop: 09/19/19 12:39 Last Admin: 09/15/19 02:17 Dose: 30 mg Ondansetron HCl (Zofran) 4 mg IVPUSH Q4H PRN PRN Reason: Nausea/Vomiting Last Admin: 09/14/19 21:46 Dose: 4 mg Pantoprazole Sodium (Protonix Iv) 40 mg IVPUSH Q24H [facility] Last Admin: 09/15/19 13:07 Dose: 40 mg Sodium Chloride (Saline Flush) 10 ml FLUSH ASDIRECTED PRN PRN Reason: Keep Vein Open Last Admin: 09/14/19 08:24 Dose: 10 ml Discontinued Medications Sodium Chloride (Normal Saline) 1,000 mls @ 150 mls/hr IV [facility]IRECTED [facility] Last Admin: 09/14/19 09:57 Dose: 150 mls/hr Sodium Chloride (Normal Saline) 1,000 mls @ 150 mls/hr IV [facility]IRECTED [facility] Last Admin: 09/15/19 05:20 Dose: 150 mls/hr Iopamidol (Isovue-370 (76%)) 100 ml IV . DIRECTED ONE Stop: 09/14/19 08:33 Last Admin: 09/14/19 08:48 Dose: 79 ml Lidocaine HCl (Glydo) 6 ml .XX NOW STA Stop: 09/14/19 09:27 Last Admin: 09/14/19 09:20 Dose: 6 ml Morphine Sulfate (Morphine) 2 mg IVPUSH ONETIME ONE Stop: 09/14/19 08:15 Last Admin: 09/14/19 08:21 Dose: 2 mg Ondansetron HCl (Zofran) 4 mg IVPUSH ONETIME ONE Stop: 09/14/19 08:15 Last Admin: 09/14/19 08:22 Dose: 4 mg - Exam General: Alert, Oriented HEENT: Pupils Equal Lungs: Clear to Auscultation Cardiovascular: Regular Rate GI/Abdominal Exam: Normal Bowel Sounds, Soft, Tender. No: Distended, Rigid, Mass, Hepatomegaly Sepsis Event Note - Evaluation Sepsis Screening Result: No Definite Risk - Focused Exam Vital Signs: Vital Signs Temp Pulse Resp BP Pulse Ox 09/15/19 12:00 97.9 F 67 18 142/81 H 99 09/15/19 10:17 97 09/15/19 08:00 97.7 F 68 18 135/72 97 09/15/19 05:00 98.2 F 76 16 131/82 95 Date Exam was Performed: 09/15/19 Time Exam was Performed: 15:16 - Problem List & Annotations (1) SBO (small bowel obstruction) SNOMED Code(s): 291166348 Code(s): K56.609 - UNSP INTESTNL OBST, UNSP TO PARTIAL VERSUS COMPLETE OBST Status: Acute Current Visit: Yes - Problem List Review Problem List Initiated/Reviewed/Updated: Yes - Plan Plan:: Continue care per Dr Kolb
--- NOTE | 2019-09-15 18:37 | PCM.PN ---
- General Info Date of Service: 09/15/19 Functional Status: Reports: Pain Controlled - Review of Systems General: Reports: No Symptoms Pulmonary: Reports: No Symptoms Cardiovascular: Reports: No Symptoms Gastrointestinal: Reports: No Symptoms, Other (small BM ). Denies: Abdominal Pain, Flatus Genitourinary: Reports: No Symptoms - Patient Data Vitals - Most Recent: Last Vital Signs Temp 97.9 F 09/15/19 12:00 Pulse 67 09/15/19 12:00 Resp 18 09/15/19 12:00 BP 142/81 H 09/15/19 12:00 Pulse Ox 99 09/15/19 12:00 Weight - Most Recent: 74.298 kg I&O - Last 24 Hours: Intake & Output 09/15/19 09/15/19 09/15/19 06:59 14:59 22:59 Intake Total 1207 929 Output Total 150 Balance 1057 929 Lab Results Last 24 Hours: Laboratory Results - last 24 hr 09/15/19 09/15/19 09/15/19 Range/Units 06:30 06:30 06:30 WBC 8.5 (4.5-12.0) X10-3/uL RBC 4.21 (3.23-5.20) x10(6)uL Hgb 13.1 (11.5-15.5) g/dL Hct 39.1 (30.0-51.3) % MCV 93.0 (80-96) fL MCH 31.0 (27.7-33.6) pg MCHC 33.3 (32.2-35.4) g/dL RDW 12.6 (11.5-15.5) % Plt Count 239 (125-369) X10(3)uL MPV 8.1 (7.4-10.4) fL Neut % (Auto) 80.5 (46-82) % Lymph % (Auto) 13.0 (13-37) % [place] % (Auto) 5.1 (4-12) % Eos % (Auto) 1 (1.0-5.0) % Baso % (Auto) 0 (0-2) % Neut # (Auto) 6.9 (1.6-8.3) # Lymph # (Auto) 1.1 (0.6-5.0) # [place] # (Auto) 0.4 (0.0-1.3) # Eos # (Auto) 0.1 (0.0-0.8) # Baso # (Auto) 0.0 (0.0-0.2) # Sodium 142 (135-145) mmol/L Potassium 3.7 (3.5-5.3) mmol/L Chloride 110 D (100-110) mmol/L Carbon Dioxide 24 (21-32) mmol/L BUN 14 (7-18) mg/dL Creatinine 0.6 (0.55-1.02) mg/dL Est Cr Clr Drug Dosing 77.88 mL/min Estimated GFR (MDRD) > 60 (>60) BUN/Creatinine Ratio 23.3 H (9-20) Glucose 83 (80-116) mg/dL Lactic Acid 0.7 (0.4-2.0) mmol/L Calcium 7.2 L D (8.6-10.2) mg/dL Total Bilirubin 0.8 (0.1-1.3) mg/dL AST 24 D (5-25) IU/L ALT 24 D (12-36) U/L Alkaline Phosphatase 54 L (56-112) IU/L Total Protein 5.3 L (6.0-8.0) g/dL Albumin 2.5 L (3.2-4.6) g/dL Globulin 2.8 g/dL Albumin/Globulin Ratio 0.9 Med Orders - Current: Current Medications Sodium Chloride (Normal Saline) 1,000 mls @ 999 mls/hr IV ASDIRECTED [facility] Last Admin: 09/14/19 08:19 Dose: 999 mls/hr Potassium Cl/Dextrose/Lact Ringer's (D5 Lr With 20 Meq Kcl) 1,000 mls @ 50 mls/ hr IV Q8H [facility] Last Infusion: 09/15/19 17:22 Dose: 50 mls/hr Ketorolac Tromethamine (Toradol) 30 mg IVPUSH Q6H PRN PRN Reason: Abdominal Pain Stop: 09/19/19 12:39 Last Admin: 09/15/19 02:17 Dose: 30 mg Ondansetron HCl (Zofran) 4 mg IVPUSH Q4H PRN PRN Reason: Nausea/Vomiting Last Admin: 09/14/19 21:46 Dose: 4 mg Pantoprazole Sodium (Protonix Iv) 40 mg IVPUSH Q24H [facility] Last Admin: 09/15/19 13:07 Dose: 40 mg Sodium Chloride (Saline Flush) 10 ml FLUSH ASDIRECTED PRN PRN Reason: Keep Vein Open Last Admin: 09/14/19 08:24 Dose: 10 ml Discontinued Medications Sodium Chloride (Normal Saline) 1,000 mls @ 150 mls/hr IV ASDIRECTED [facility] Last Admin: 09/14/19 09:57 Dose: 150 mls/hr Sodium Chloride (Normal Saline) 1,000 mls @ 150 mls/hr IV ASDIRECTED [facility] Last Admin: 09/15/19 05:20 Dose: 150 mls/hr Iopamidol (Isovue-370 (76%)) 100 ml IV . DIRECTED ONE Stop: 09/14/19 08:33 Last Admin: 09/14/19 08:48 Dose: 79 ml Lidocaine HCl (Glydo) 6 ml .XX NOW STA Stop: 09/14/19 09:27 Last Admin: 09/14/19 09:20 Dose: 6 ml Morphine Sulfate (Morphine) 2 mg IVPUSH ONETIME ONE Stop: 09/14/19 08:15 Last Admin: 09/14/19 08:21 Dose: 2 mg Ondansetron HCl (Zofran) 4 mg IVPUSH ONETIME ONE Stop: 09/14/19 08:15 Last Admin: 09/14/19 08:22 Dose: 4 mg - Exam General: Alert, Oriented Lungs: Clear to Auscultation, Normal Respiratory Effort GI/Abdominal Exam: Soft, Non-Tender, Distended (mildly) Sepsis Event Note - Evaluation Sepsis Screening Result: No Definite Risk - Focused Exam Vital Signs: Vital Signs Temp Pulse Resp BP Pulse Ox 09/15/19 12:00 97.9 F 67 18 142/81 H 99 09/15/19 10:17 97 09/15/19 08:00 97.7 F 68 18 135/72 97 Date Exam was Performed: 09/15/19 Time Exam was Performed: 18:32 - Problem List Review Problem List Initiated/Reviewed/Updated: Yes - My Orders Last 24 Hours: My Active Orders 09/15/19 12:15 Dextrose 5%-Lact Ringers w/KCl [D5 LR with 20 mEq KCl] 1,000 ml IV Q8H - Assessment Assessment:: SBO seems to be improving - Plan Plan:: Continue care per Dr Kolb Cont Supportive care Recheck AXR in am
[2019-09-15] MEDS: Dextrose 5%-Lact Ringers w/KCl 1,000 ML IV SCH (21:48)
[2019-09-16] MEDS: Ketorolac 30 MG/ML SDV IVPUSH PRN (02:30)
[2019-09-16] MEDS: Sodium Chloride 0.9% 10 ML Syringe FLUSH PRN ×2 (02:30→15:19)
[2019-09-16] MEDS: Ondansetron 4 MG/2 ML SDV IVPUSH PRN (02:32)
--- NOTE | 2019-09-16 06:57 | PCM.SN.2 ---
- Free Text/Narrative Note: pt has increasing pain this am. No bowel function. Developed low grade temp 99.6. Abd is still soft but more tender in lower abd. Will take to OR for expl lap. Discussed risks and complications and called . Consent obtained.
[2019-09-16] MEDS ORDERED: cefOXitin 2 GM Vial IVPUSH ONE (07:24)
[2019-09-16] MEDS ORDERED: Dextrose 5%-Lact Ringers w/KCl 1,000 ML IV SCH (08:30)
--- NOTE | 2019-09-16 08:52 | PCM.OPNOTE ---
- General Post-Op/Procedure Note Date of Surgery/Procedure: 09/16/19 Operative Procedure(s): Expl lap with Adhesiolysis Findings: Adhesions in pelvis Pre Op Diagnosis: SBO Post-Op Diagnosis: Same Anesthesia Technique: General ET Tube Primary Surgeon: Tha Kolb EBL in mLs: 25 Complications: None Condition: Good Free Text/Narrative:: Intake & Output 09/15/19 09/16/19 09/16/19 22:59 06:59 14:59 Intake Total 50 813 Output Total 7750 9335 Balance -9432 -546
[2019-09-16] MEDS ORDERED: Morphine 2 MG/ML Syringe IVPUSH PRN (08:59)
[2019-09-16] MEDS ORDERED: Ketorolac 30 MG/ML SDV IVPUSH SCH (09:00)
[2019-09-16] MEDS: Lactated Ringers 1,000 ML IV SCH (09:30)
[2019-09-16] MEDS ORDERED: Labetalol 100 MG/20 ML MDV IV ONE (10:00)
[2019-09-16] MEDS ORDERED: fentaNYL 100 MCG/2 ML SDV IV ONE (10:00)
[2019-09-16] MEDS ORDERED: Ketorolac 30 MG/ML SDV IVPUSH ONE (10:00)
[2019-09-16] MEDS ORDERED: Dexamethasone 4 MG/ML 5 ML MDV IVPUSH ONE (10:00)
[2019-09-16] MEDS ORDERED: Propofol 200 MG/20 ML SDV IV ONE (10:00)
[2019-09-16] MEDS ORDERED: Lactated Ringers 1,000 ML IV ONE (10:00)
[2019-09-16] MEDS ORDERED: Rocuronium 100 MG/10 ML MDV IV ONE (10:00)
[2019-09-16] MEDS ORDERED: Midazolam 1 MG/ML 2 ML SDV IV ONE (10:00)
[2019-09-16] MEDS ORDERED: Ondansetron 4 MG/2 ML SDV IVPUSH ONE (10:00)
[2019-09-16] MEDS ORDERED: cefOXitin 2 GM Vial IV ONE (10:00)
[2019-09-16] MEDS ORDERED: Sugammadex Sodium 200 MG/2 ML VIAL IV ONE (10:00)
[2019-09-16] MEDS ORDERED: HYDROmorphone 2 MG/ML SDV IV ONE (10:00)
[2019-09-16] MEDS: Dextrose 5%-Lact Ringers w/KCl 1,000 ML IV SCH ×3 (11:16→20:53)
[2019-09-16] MEDS: Ketorolac 30 MG/ML SDV IVPUSH SCH ×2 (15:15→20:02)
[2019-09-16] MEDS: Pantoprazole 40 MG Vial IVPUSH SCH (15:18)
--- NOTE | 2019-09-16 16:30 | OR ---
DATE OF OPERATION: 09/16/2019 SURGEON: Tha Kolb MD PREOPERATIVE DIAGNOSIS: Small bowel obstruction. POSTOPERATIVE DIAGNOSIS: Small bowel obstruction secondary to adhesions. PROCEDURE: Exploratory laparotomy with adhesiolysis. ANESTHESIA: General. DESCRIPTION OF PROCEDURE: The patient was brought to the operating room after time-out was performed. General endotracheal anesthesia was administered. The abdomen was prepped with ChloraPrep and draped sterilely. Irby catheter and Flowtrons had been placed and nasogastric tube was already in place. A lower midline incision was made and extended into the peritoneal cavity without difficulty. Approximately 50 mL of light reddish ascites fluid was present. There was no free air. Bowel loops were dilated. These were delivered onto the abdominal wall and the point of obstruction seemed to be in the pelvis from her previous hysterectomy. The bowel was followed distally and stopped at the mid jejunum, where it was densely adhesed into the pelvis. I then located the cecum and followed this retrograde until again it was densely adhesed into the pelvis. The obstruction was in the mid ileum where the bowel was dilated and thickened proximally and collapsed distally. Careful adhesiolysis was undertaken with several loops of small bowel stuck to the peritoneum along the vaginal cuff, right tube, and the small bowel mesentery. The loop of bowel in the pelvis that was most densely adhesed was slightly purplish but viable. Once all the adhesions were freed up, the bowel was run from the terminal ileum to the ligament of Treitz and milked some fluid and air back into the stomach. All bowel serosa appeared normal. Small bowel was placed back into the abdominal cavity. The midline fascia was closed with running #2 Prolene. Subcutaneous tissue was irrigated and skin closed with hossein. I did confirm NG placement in the stomach and did have it pulled back to remove the loop that was present. Sterile dressing was applied. The patient tolerated the procedure well. Estimated blood loss less than 25 mL. She returned to Postanesthesia in stable condition. /[id number] BREE/MATTY
[2019-09-16] MEDS ORDERED: Sodium Chloride 0.9% 500 ML IV ONE (22:17)
[2019-09-17] MEDS: Ondansetron 4 MG/2 ML SDV IVPUSH PRN (01:49)
[2019-09-17] MEDS: Ketorolac 30 MG/ML SDV IVPUSH SCH ×4 (01:49→19:39)
[2019-09-17] MEDS: Sodium Chloride 0.9% 10 ML Syringe FLUSH PRN ×4 (01:52→19:40)
[2019-09-17] MEDS: Dextrose 5%-Lact Ringers w/KCl 1,000 ML IV SCH ×5 (06:29→19:36)
[2019-09-17] MEDS ORDERED: Sodium Chloride 0.9% 500 ML IV ONE (08:00)
[2019-09-17] MEDS: Enoxaparin 40 MG/0.4 ML Syringe SUBCUT SCH (10:21)
--- NOTE | 2019-09-17 12:37 | PCM.PN ---
- General Info Date of Service: 09/17/19 Functional Status: Reports: Pain Controlled, Ambulating - Review of Systems General: Reports: No Symptoms Pulmonary: Reports: No Symptoms Cardiovascular: Reports: No Symptoms Gastrointestinal: Reports: No Symptoms, Diarrhea (X 3 today) - Patient Data Vitals - Most Recent: Last Vital Signs Temp 98.3 F 09/17/19 04:00 Pulse 98 09/17/19 04:00 Resp 14 09/17/19 04:00 BP 108/73 09/17/19 04:00 Pulse Ox 98 09/17/19 04:00 Weight - Most Recent: 74.446 kg I&O - Last 24 Hours: Intake & Output 09/16/19 09/17/19 09/17/19 22:59 06:59 14:59 Intake Total 1988 Output Total 120 200 Balance -120 1788 Lab Results Last 24 Hours: Laboratory Results - last 24 hr 09/17/19 09/17/19 Range/Units 06:02 06:02 WBC 7.0 (4.5-12.0) X10-3/uL RBC 3.73 (3.23-5.20) x10(6)uL Hgb 11.6 (11.5-15.5) g/dL Hct 34.7 (30.0-51.3) % MCV 92.9 (80-96) fL MCH 31.1 (27.7-33.6) pg MCHC 33.5 (32.2-35.4) g/dL RDW 13.0 (11.5-15.5) % Plt Count 191 (125-369) X10(3)uL MPV 7.6 (7.4-10.4) fL Neut % (Auto) 85.2 H (46-82) % Lymph % (Auto) 8.5 L (13-37) % [place] % (Auto) 5.4 (4-12) % Eos % (Auto) 1 (1.0-5.0) % Baso % (Auto) 0 (0-2) % Neut # (Auto) 6.0 (1.6-8.3) # Lymph # (Auto) 0.6 (0.6-5.0) # [place] # (Auto) 0.4 (0.0-1.3) # Eos # (Auto) 0.0 (0.0-0.8) # Baso # (Auto) 0.0 (0.0-0.2) # Sodium 139 (135-145) mmol/L Potassium 4.0 (3.5-5.3) mmol/L Chloride 107 (100-110) mmol/L Carbon Dioxide 27 (21-32) mmol/L BUN 11 (7-18) mg/dL Creatinine 0.9 (0.55-1.02) mg/dL Est Cr Clr Drug Dosing 51.92 mL/min Estimated GFR (MDRD) > 60 (>60) BUN/Creatinine Ratio 12.2 (9-20) Glucose 126 H (80-116) mg/dL Calcium 7.4 L (8.6-10.2) mg/dL Med Orders - Current: Current Medications Enoxaparin Sodium (Lovenox) 40 mg SUBCUT DAILY [facility] Last Admin: 09/17/19 10:21 Dose: 40 mg Lactated Ringer's (Ringers, Lactated) 1,000 mls @ 125 mls/hr IV ASDIRECTED [facility] Last Admin: 09/16/19 09:30 Dose: 125 mls/hr Potassium Cl/Dextrose/Lact Ringer's (D5 Lr With 20 Meq Kcl) 1,000 mls @ 150 mls /hr IV Q10H [facility] Last Admin: 09/17/19 06:29 Dose: 150 mls/hr Ketorolac Tromethamine (Toradol) 30 mg IVPUSH Q6H [facility] Stop: 09/21/19 07:59 Last Admin: 09/17/19 07:51 Dose: 30 mg Morphine Sulfate (Morphine) 1 mg IVPUSH Q1H PRN PRN Reason: Abdominal Pain Ondansetron HCl (Zofran) 4 mg IVPUSH Q6H PRN PRN Reason: Nausea/Vomiting Last Admin: 09/17/19 01:49 Dose: 4 mg Pantoprazole Sodium (Protonix Iv) 40 mg IVPUSH Q24H [facility] Last Admin: 09/16/19 15:18 Dose: 40 mg Sodium Chloride (Saline Flush) 10 ml FLUSH ASDIRECTED PRN PRN Reason: Keep Vein Open Last Admin: 09/17/19 01:55 Dose: 10 ml Discontinued Medications Cefoxitin Sodium (Mefoxin) 2 gm IVPUSH ONETIME ONE Stop: 09/16/19 07:25 Last Admin: 09/16/19 09:41 Dose: Not Given Sodium Chloride (Normal Saline) 1,000 mls @ 999 mls/hr IV ASDIRECTED [facility] Last Admin: 09/14/19 08:19 Dose: 999 mls/hr Sodium Chloride (Normal Saline) 1,000 mls @ 150 mls/hr IV ASDIRECTED [facility] Last Admin: 09/14/19 09:57 Dose: 150 mls/hr Sodium Chloride (Normal Saline) 1,000 mls @ 150 mls/hr IV ASDIRECTED [facility] Last Admin: 09/15/19 05:20 Dose: 150 mls/hr Potassium Cl/Dextrose/Lact Ringer's (D5 Lr With 20 Meq Kcl) 1,000 mls @ 50 mls/ hr IV Q8H [facility] Last Infusion: 09/15/19 17:22 Dose: 50 mls/hr Potassium Cl/Dextrose/Lact Ringer's (D5 Lr With 20 Meq Kcl) 1,000 mls @ 100 mls /hr IV ASDIRECTED [facility] Stop: 09/16/19 08:30 Last Admin: 09/15/19 21:48 Dose: 100 mls/hr Potassium Cl/Dextrose/Lact Ringer's (D5 Lr With 20 Meq Kcl) 1,000 mls @ 100 mls /hr IV Q10H [facility] Last Admin: 09/16/19 10:58 Dose: Not Given Sodium Chloride (Normal Saline) 500 mls @ 167 mls/hr IV ONETIME ONE Stop: 09/17/19 01:16 Last Admin: 09/16/19 22:26 Dose: 167 mls/hr Sodium Chloride (Normal Saline) 500 mls @ 999 mls/hr IV .BOLUS ONE Stop: 09/17/19 08:30 Last Admin: 09/17/19 07:58 Dose: 999 mls/hr Iopamidol (Isovue-370 (76%)) 100 ml IV . DIRECTED ONE Stop: 09/14/19 08:33 Last Admin: 09/14/19 08:48 Dose: 79 ml Ketorolac Tromethamine (Toradol) 30 mg IVPUSH Q6H PRN PRN Reason: Abdominal Pain Stop: 09/19/19 12:39 Last Admin: 09/16/19 02:30 Dose: 30 mg Ketorolac Tromethamine (Toradol) 30 mg IVPUSH Q6H [facility] Stop: 09/21/19 08:59 Last Admin: 09/16/19 11:32 Dose: Not Given Lidocaine HCl (Glydo) 6 ml .XX NOW STA Stop: 09/14/19 09:27 Last Admin: 09/14/19 09:20 Dose: 6 ml Morphine Sulfate (Morphine) 2 mg IVPUSH ONETIME ONE Stop: 09/14/19 08:15 Last Admin: 09/14/19 08:21 Dose: 2 mg Ondansetron HCl (Zofran) 4 mg IVPUSH ONETIME ONE Stop: 09/14/19 08:15 Last Admin: 09/14/19 08:22 Dose: 4 mg Ondansetron HCl (Zofran) 4 mg IVPUSH Q4H PRN PRN Reason: Nausea/Vomiting Last Admin: 09/16/19 02:32 Dose: 4 mg - Exam General: Alert, Oriented Lungs: Clear to Auscultation GI/Abdominal Exam: Soft, Non-Tender. No: No Distention Sepsis Event Note - Evaluation Sepsis Screening Result: No Definite Risk - Focused Exam Vital Signs: Vital Signs Temp Pulse Resp BP Pulse Ox 09/17/19 04:00 98.3 F 98 14 108/73 98 09/17/19 01:00 96 Date Exam was Performed: 09/17/19 Time Exam was Performed: 12:35 - Problem List Review Problem List Initiated/Reviewed/Updated: Yes - My Orders Last 24 Hours: My Active Orders 09/16/19 14:00 Ketorolac [Toradol] 30 mg IVPUSH Q6H 09/16/19 22:00 Intake and Output [RC] 06,14,22 09/17/19 01:18 Ondansetron [Zofran] 4 mg IVPUSH Q6H PRN 09/17/19 09:00 Enoxaparin [Lovenox] 40 mg SUBCUT DAILY - Assessment Assessment:: Doing well POD # 1 - Plan Plan:: Cont as is, await bowel function
[2019-09-17] MEDS: Pantoprazole 40 MG Vial IVPUSH SCH (13:51)
[2019-09-18] MEDS: Ondansetron 4 MG/2 ML SDV IVPUSH PRN ×3 (01:14→20:34)
[2019-09-18] MEDS: Sodium Chloride 0.9% 10 ML Syringe FLUSH PRN ×3 (01:15→20:35)
[2019-09-18] MEDS: Ketorolac 30 MG/ML SDV IVPUSH SCH ×4 (01:16→20:09)
[2019-09-18] MEDS: Dextrose 5%-Lact Ringers w/KCl 1,000 ML IV SCH ×3 (02:39→18:26)
[2019-09-18] MEDS: Enoxaparin 40 MG/0.4 ML Syringe SUBCUT SCH (09:04)
--- NOTE | 2019-09-18 09:42 | PCM.PN ---
- General Info Date of Service: 09/18/19 Functional Status: Reports: Pain Controlled, Ambulating - Review of Systems General: Reports: No Symptoms Pulmonary: Reports: No Symptoms Gastrointestinal: Reports: Diarrhea, Other (Had some bleeding from incisionlast pm, stopped spontaneously). Denies: Flatus - Patient Data Vitals - Most Recent: Last Vital Signs Temp 97.6 F 09/18/19 04:00 Pulse 85 09/18/19 04:00 Resp 20 09/18/19 04:00 BP 135/85 09/18/19 04:00 Pulse Ox 94 L 09/18/19 04:00 Weight - Most Recent: 74.446 kg I&O - Last 24 Hours: Intake & Output 09/17/19 09/18/19 09/18/19 22:59 06:59 14:59 Intake Total 834 1336 Output Total 600 1425 Balance 234 -89 Med Orders - Current: Current Medications Enoxaparin Sodium (Lovenox) 40 mg SUBCUT DAILY [facility] Last Admin: 09/18/19 09:04 Dose: 40 mg Lactated Ringer's (Ringers, Lactated) 1,000 mls @ 75 mls/hr IV ASDIRECTED [facility] Last Admin: 09/16/19 09:30 Dose: 125 mls/hr Potassium Cl/Dextrose/Lact Ringer's (D5 Lr With 20 Meq Kcl) 1,000 mls @ 150 mls /hr IV Q7H [facility] Last Admin: 09/18/19 09:04 Dose: 150 mls/hr Ketorolac Tromethamine (Toradol) 30 mg IVPUSH Q6H [facility] Stop: 09/21/19 07:59 Last Admin: 09/18/19 07:15 Dose: 30 mg Morphine Sulfate (Morphine) 1 mg IVPUSH Q1H PRN PRN Reason: Abdominal Pain Ondansetron HCl (Zofran) 4 mg IVPUSH Q6H PRN PRN Reason: Nausea/Vomiting Last Admin: 09/18/19 07:46 Dose: 4 mg Pantoprazole Sodium (Protonix Iv) 40 mg IVPUSH Q24H [facility] Last Admin: 09/17/19 13:51 Dose: 40 mg Sodium Chloride (Saline Flush) 10 ml FLUSH ASDIRECTED PRN PRN Reason: Keep Vein Open Last Admin: 09/18/19 01:15 Dose: 10 ml Discontinued Medications Cefoxitin Sodium (Mefoxin) 2 gm IVPUSH ONETIME ONE Stop: 09/16/19 07:25 Last Admin: 09/16/19 09:41 Dose: Not Given Sodium Chloride (Normal Saline) 1,000 mls @ 999 mls/hr IV ASDIRECTED [facility] Last Admin: 09/14/19 08:19 Dose: 999 mls/hr Sodium Chloride (Normal Saline) 1,000 mls @ 150 mls/hr IV ASDIRECTED [facility] Last Admin: 09/14/19 09:57 Dose: 150 mls/hr Sodium Chloride (Normal Saline) 1,000 mls @ 150 mls/hr IV ASDIRECTED [facility] Last Admin: 09/15/19 05:20 Dose: 150 mls/hr Potassium Cl/Dextrose/Lact Ringer's (D5 Lr With 20 Meq Kcl) 1,000 mls @ 50 mls/ hr IV Q8H [facility] Last Infusion: 09/15/19 17:22 Dose: 50 mls/hr Potassium Cl/Dextrose/Lact Ringer's (D5 Lr With 20 Meq Kcl) 1,000 mls @ 100 mls /hr IV ASDIRECTED [facility] Stop: 09/16/19 08:30 Last Infusion: 09/16/19 07:48 Dose: Infused Potassium Cl/Dextrose/Lact Ringer's (D5 Lr With 20 Meq Kcl) 1,000 mls @ 100 mls /hr IV Q10H [facility] Last Admin: 09/16/19 10:58 Dose: Not Given Potassium Cl/Dextrose/Lact Ringer's (D5 Lr With 20 Meq Kcl) 1,000 mls @ 150 mls /hr IV Q10H [facility] Stop: 09/17/19 19:59 Last Admin: 09/17/19 18:45 Dose: Not Given Sodium Chloride (Normal Saline) 500 mls @ 167 mls/hr IV ONETIME ONE Stop: 09/17/19 01:16 Last Admin: 09/16/19 22:26 Dose: 167 mls/hr Sodium Chloride (Normal Saline) 500 mls @ 999 mls/hr IV .BOLUS ONE Stop: 09/17/19 08:30 Last Admin: 09/17/19 07:58 Dose: 999 mls/hr Iopamidol (Isovue-370 (76%)) 100 ml IV . DIRECTED ONE Stop: 09/14/19 08:33 Last Admin: 09/14/19 08:48 Dose: 79 ml Ketorolac Tromethamine (Toradol) 30 mg IVPUSH Q6H PRN PRN Reason: Abdominal Pain Stop: 09/19/19 12:39 Last Admin: 09/16/19 02:30 Dose: 30 mg Ketorolac Tromethamine (Toradol) 30 mg IVPUSH Q6H [facility] Stop: 09/21/19 08:59 Last Admin: 09/16/19 11:32 Dose: Not Given Lidocaine HCl (Glydo) 6 ml .XX NOW STA Stop: 09/14/19 09:27 Last Admin: 09/14/19 09:20 Dose: 6 ml Morphine Sulfate (Morphine) 2 mg IVPUSH ONETIME ONE Stop: 09/14/19 08:15 Last Admin: 09/14/19 08:21 Dose: 2 mg Ondansetron HCl (Zofran) 4 mg IVPUSH ONETIME ONE Stop: 09/14/19 08:15 Last Admin: 09/14/19 08:22 Dose: 4 mg Ondansetron HCl (Zofran) 4 mg IVPUSH Q4H PRN PRN Reason: Nausea/Vomiting Last Admin: 09/16/19 02:32 Dose: 4 mg - Exam General: Alert, Oriented GI/Abdominal Exam: Soft, Non-Tender Sepsis Event Note - Evaluation Sepsis Screening Result: No Definite Risk - Focused Exam Vital Signs: Vital Signs Temp Pulse Resp BP Pulse Ox 09/18/19 04:00 97.6 F 85 20 135/85 94 L 09/18/19 00:00 98.4 F 106 H 20 138/89 94 L Date Exam was Performed: 09/18/19 Time Exam was Performed: 09:39 - Problem List Review Problem List Initiated/Reviewed/Updated: Yes - My Orders Last 24 Hours: My Active Orders 09/17/19 09:00 Enoxaparin [Lovenox] 40 mg SUBCUT DAILY 09/17/19 20:00 Dextrose 5%-Lact Ringers w/KCl [D5 LR with 20 mEq KCl] 1,000 ml IV Q7H 09/18/19 09:38 DC [place] Catheter [Urinary Catheter Removal] [RC] Per Unit Routine 09/19/19 08:00 BASIC METABOLIC PANEL,BMP [CHEM] Routine CBC W/O DIFF,HEMOGRAM [HEME] Routine - Assessment Assessment:: Doing well POD # 2 - Plan Plan:: Cont as is, await bowel function Check labs tomorrow D/C [place]
[2019-09-18] MEDS: Pantoprazole 40 MG Vial IVPUSH SCH (12:56)
[2019-09-18] MEDS: Lactated Ringers 1,000 ML IV SCH (18:46)
[2019-09-19] MEDS: Dextrose 5%-Lact Ringers w/KCl 1,000 ML IV SCH ×3 (02:05→15:41)
[2019-09-19] MEDS: Ketorolac 30 MG/ML SDV IVPUSH SCH ×4 (02:17→19:58)
[2019-09-19] MEDS: Sodium Chloride 0.9% 10 ML Syringe FLUSH PRN ×4 (02:18→20:04)
[2019-09-19] MEDS: Ondansetron 4 MG/2 ML SDV IVPUSH PRN ×3 (02:19→18:46)
[2019-09-19] MEDS: Lactated Ringers 1,000 ML IV SCH ×2 (08:13→21:22)
[2019-09-19] MEDS: Enoxaparin 40 MG/0.4 ML Syringe SUBCUT SCH (09:12)
[2019-09-19] MEDS: Pantoprazole 40 MG Vial IVPUSH SCH (13:21)
--- NOTE | 2019-09-19 19:40 | PCM.SURGPN ---
- General Info Date of Service: 09/19/19 POD#: 3 Functional Status: Reports: Pain Controlled, Ambulating, Urinating - Review of Systems General: Reports: No Symptoms Pulmonary: Reports: No Symptoms Gastrointestinal: Denies: Abdominal Pain, Flatus - Patient Data Vitals - Most Recent: Last Vital Signs Temp 98.2 F 09/19/19 17:20 Pulse 150 H 09/19/19 17:20 Resp 20 09/19/19 17:20 BP 136/87 09/19/19 12:52 Pulse Ox 98 09/19/19 17:20 Weight - Most Recent: 74.446 kg I&O - Last 24 Hours: Intake & Output 09/19/19 09/19/19 09/19/19 06:59 14:59 22:59 Intake Total 581 786 Output Total 750 800 400 Balance -169 -14 -400 Lab Results Last 24 Hrs: Laboratory Results - last 24 hr 09/19/19 09/19/19 Range/Units 06:20 06:20 WBC 5.8 (4.5-12.0) X10-3/uL RBC 3.92 (3.23-5.20) x10(6)uL Hgb 11.9 (11.5-15.5) g/dL Hct 35.9 (30.0-51.3) % MCV 91.7 (80-96) fL MCH 30.5 (27.7-33.6) pg MCHC 33.2 (32.2-35.4) g/dL RDW 12.2 (11.5-15.5) % Plt Count 234 (125-369) X10(3)uL Sodium 138 (135-145) mmol/L Potassium 3.7 (3.5-5.3) mmol/L Chloride 105 (100-110) mmol/L Carbon Dioxide 28 (21-32) mmol/L BUN 7 (7-18) mg/dL Creatinine 0.7 (0.55-1.02) mg/dL Est Cr Clr Drug Dosing 66.75 mL/min Estimated GFR (MDRD) > 60 (>60) BUN/Creatinine Ratio 10.0 (9-20) Glucose 93 (80-116) mg/dL Calcium 7.9 L (8.6-10.2) mg/dL Med Orders - Current: Current Medications Enoxaparin Sodium (Lovenox) 40 mg SUBCUT DAILY [facility] Last Admin: 09/19/19 09:12 Dose: 40 mg Lactated Ringer's (Ringers, Lactated) 1,000 mls @ 75 mls/hr IV ASDIRECTED [facility] Last Admin: 09/19/19 08:13 Dose: 75 mls/hr Ketorolac Tromethamine (Toradol) 30 mg IVPUSH Q6H [facility] Stop: 09/21/19 07:59 Last Admin: 09/19/19 14:34 Dose: 30 mg Morphine Sulfate (Morphine) 1 mg IVPUSH Q1H PRN PRN Reason: Abdominal Pain Ondansetron HCl (Zofran) 4 mg IVPUSH Q6H PRN PRN Reason: Nausea/Vomiting Last Admin: 09/19/19 18:46 Dose: 4 mg Pantoprazole Sodium (Protonix Iv) 40 mg IVPUSH Q24H [facility] Last Admin: 09/19/19 13:21 Dose: 40 mg Sodium Chloride (Saline Flush) 10 ml FLUSH ASDIRECTED PRN PRN Reason: Keep Vein Open Last Admin: 09/19/19 13:22 Dose: 10 ml Discontinued Medications Cefoxitin Sodium (Mefoxin) 2 gm IVPUSH ONETIME ONE Stop: 09/16/19 07:25 Last Admin: 09/16/19 09:41 Dose: Not Given Sodium Chloride (Normal Saline) 1,000 mls @ 999 mls/hr IV ASDIRECTED [facility] Last Admin: 09/14/19 08:19 Dose: 999 mls/hr Sodium Chloride (Normal Saline) 1,000 mls @ 150 mls/hr IV ASDIRECTED [facility] Last Admin: 09/14/19 09:57 Dose: 150 mls/hr Sodium Chloride (Normal Saline) 1,000 mls @ 150 mls/hr IV ASDIRECTED [facility] Last Admin: 09/15/19 05:20 Dose: 150 mls/hr Potassium Cl/Dextrose/Lact Ringer's (D5 Lr With 20 Meq Kcl) 1,000 mls @ 50 mls/ hr IV Q8H [facility] Last Infusion: 09/15/19 17:22 Dose: 50 mls/hr Potassium Cl/Dextrose/Lact Ringer's (D5 Lr With 20 Meq Kcl) 1,000 mls @ 100 mls /hr IV ASDIRECTED [facility] Stop: 09/16/19 08:30 Last Infusion: 09/16/19 07:48 Dose: Infused Potassium Cl/Dextrose/Lact Ringer's (D5 Lr With 20 Meq Kcl) 1,000 mls @ 100 mls /hr IV Q10H [facility] Last Admin: 09/16/19 10:58 Dose: Not Given Potassium Cl/Dextrose/Lact Ringer's (D5 Lr With 20 Meq Kcl) 1,000 mls @ 150 mls /hr IV Q10H [facility] Stop: 09/17/19 19:59 Last Admin: 09/17/19 18:45 Dose: Not Given Sodium Chloride (Normal Saline) 500 mls @ 167 mls/hr IV ONETIME ONE Stop: 09/17/19 01:16 Last Admin: 09/16/19 22:26 Dose: 167 mls/hr Sodium Chloride (Normal Saline) 500 mls @ 999 mls/hr IV .BOLUS ONE Stop: 09/17/19 08:30 Last Admin: 09/17/19 07:58 Dose: 999 mls/hr Potassium Cl/Dextrose/Lact Ringer's (D5 Lr With 20 Meq Kcl) 1,000 mls @ 150 mls /hr IV Q7H [facility] Last Admin: 09/19/19 15:41 Dose: Not Given Iopamidol (Isovue-370 (76%)) 100 ml IV . DIRECTED ONE Stop: 09/14/19 08:33 Last Admin: 09/14/19 08:48 Dose: 79 ml Ketorolac Tromethamine (Toradol) 30 mg IVPUSH Q6H PRN PRN Reason: Abdominal Pain Stop: 09/19/19 12:39 Last Admin: 09/16/19 02:30 Dose: 30 mg Ketorolac Tromethamine (Toradol) 30 mg IVPUSH Q6H [facility] Stop: 09/21/19 08:59 Last Admin: 09/16/19 11:32 Dose: Not Given Lidocaine HCl (Glydo) 6 ml .XX NOW STA Stop: 09/14/19 09:27 Last Admin: 09/14/19 09:20 Dose: 6 ml Morphine Sulfate (Morphine) 2 mg IVPUSH ONETIME ONE Stop: 09/14/19 08:15 Last Admin: 09/14/19 08:21 Dose: 2 mg Ondansetron HCl (Zofran) 4 mg IVPUSH ONETIME ONE Stop: 09/14/19 08:15 Last Admin: 09/14/19 08:22 Dose: 4 mg Ondansetron HCl (Zofran) 4 mg IVPUSH Q4H PRN PRN Reason: Nausea/Vomiting Last Admin: 09/16/19 02:32 Dose: 4 mg - Exam Wound/Incisions: Healing Well, Dressing Dry and Intact General: Alert, Oriented Lungs: Clear to Auscultation GI/Abdominal Exam: Soft, Distended (mild) Sepsis Event Note - Evaluation Sepsis Screening Result: No Definite Risk - Focused Exam Vital Signs: Vital Signs Temp Pulse Pulse Resp BP Pulse Ox 09/19/19 17:20 98.2 F 71 150 H 20 98 09/19/19 12:52 98.2 F 79 18 136/87 96 09/19/19 09:05 96 Date Exam was Performed: 09/19/19 Time Exam was Performed: 19:39 - Problem List Review Problem List Initiated/Reviewed/Updated: Yes - My Orders Last 24 Hours: Active Orders 24 hr Category Date Time Status Metoclopramide [Reglan] Med 09/19/19 19:45 Ordered 5 mg IVPUSH Q6H Medication Orders Enoxaparin Sodium (Lovenox) 40 mg SUBCUT DAILY [facility] Last Admin: 09/19/19 09:12 Dose: 40 mg Admin: 09/18/19 09:04 Dose: 40 mg Admin: 09/17/19 10:21 Dose: 40 mg Lactated Ringer's (Ringers, Lactated) 1,000 mls @ 75 mls/hr IV ASDIRECTED [facility] Last Admin: 09/19/19 08:13 Dose: 75 mls/hr Infusion: 09/19/19 08:06 Dose: 75 mls/hr Admin: 09/18/19 18:46 Dose: 75 mls/hr Infusion: 09/16/19 17:30 Dose: 125 mls/hr Admin: 09/16/19 09:30 Dose: 125 mls/hr Ketorolac Tromethamine (Toradol) 30 mg IVPUSH Q6H [facility] Stop: 09/21/19 07:59 Last Admin: 09/19/19 14:34 Dose: 30 mg Admin: 09/19/19 07:29 Dose: 30 mg Admin: 09/19/19 02:17 Dose: 30 mg Admin: 09/18/19 20:09 Dose: 30 mg Admin: 09/18/19 13:18 Dose: 30 mg Admin: 09/18/19 07:15 Dose: 30 mg Admin: 09/18/19 01:16 Dose: 30 mg Admin: 09/17/19 19:39 Dose: 30 mg Admin: 09/17/19 13:51 Dose: 30 mg Admin: 09/17/19 07:51 Dose: 30 mg Admin: 09/17/19 01:49 Dose: 30 mg Admin: 09/16/19 20:02 Dose: 30 mg Admin: 09/16/19 15:15 Dose: 30 mg Morphine Sulfate (Morphine) 1 mg IVPUSH Q1H PRN PRN Reason: Abdominal Pain Ondansetron HCl (Zofran) 4 mg IVPUSH Q6H PRN PRN Reason: Nausea/Vomiting Last Admin: 09/19/19 18:46 Dose: 4 mg Admin: 09/19/19 09:12 Dose: 4 mg Admin: 09/19/19 02:19 Dose: 4 mg Admin: 09/18/19 20:34 Dose: 4 mg Admin: 09/18/19 07:46 Dose: 4 mg Admin: 09/18/19 01:14 Dose: 4 mg Admin: 09/17/19 01:49 Dose: 4 mg Pantoprazole Sodium (Protonix Iv) 40 mg IVPUSH Q24H [facility] Last Admin: 09/19/19 13:21 Dose: 40 mg Admin: 09/18/19 12:56 Dose: 40 mg Admin: 09/17/19 13:51 Dose: 40 mg Admin: 09/16/19 15:18 Dose: 40 mg Admin: 09/15/19 13:07 Dose: 40 mg Admin: 09/14/19 13:22 Dose: 40 mg Sodium Chloride (Saline Flush) 10 ml FLUSH ASDIRECTED PRN PRN Reason: Keep Vein Open Last Admin: 09/19/19 13:22 Dose: 10 ml Admin: 09/19/19 02:18 Dose: 10 ml Admin: 09/18/19 20:35 Dose: 10 ml Admin: 09/18/19 20:11 Dose: 10 ml Admin: 09/18/19 01:15 Dose: 10 ml Admin: 09/17/19 19:40 Dose: 10 ml Admin: 09/17/19 13:54 Dose: 10 ml Admin: 09/17/19 01:55 Dose: 10 ml Admin: 09/17/19 01:52 Dose: 10 ml Admin: 09/16/19 15:19 Dose: 10 ml Admin: 09/16/19 02:30 Dose: 10 ml Admin: 09/14/19 08:24 Dose: 10 ml - Assessment Assessment (Free Text/Narrative):: Doing well - Plan Plan (Free Text/Narrative):: Await bowel function Add Reglan
[2019-09-19] MEDS: Metoclopramide 10 MG/2 ML SDV IVPUSH SCH (19:56)
[2019-09-20] MEDS: Metoclopramide 10 MG/2 ML SDV IVPUSH SCH ×4 (02:00→19:47)
[2019-09-20] MEDS: Ketorolac 30 MG/ML SDV IVPUSH SCH ×4 (02:00→19:47)
[2019-09-20] MEDS: Sodium Chloride 0.9% 10 ML Syringe FLUSH PRN ×3 (02:01→19:48)
[2019-09-20] MEDS: Enoxaparin 40 MG/0.4 ML Syringe SUBCUT SCH (09:30)
[2019-09-20] MEDS: Lactated Ringers 1,000 ML IV SCH ×2 (10:24→23:55)
[2019-09-20] MEDS: Pantoprazole 40 MG Vial IVPUSH SCH (14:11)
[2019-09-21] MEDS: Metoclopramide 10 MG/2 ML SDV IVPUSH SCH ×4 (01:53→19:50)
[2019-09-21] MEDS: Sodium Chloride 0.9% 10 ML Syringe FLUSH PRN (01:53)
[2019-09-21] MEDS: Ketorolac 30 MG/ML SDV IVPUSH SCH (01:53)
--- NOTE | 2019-09-21 09:35 | PCM.SURGPN ---
- General Info Date of Service: 09/20/19 POD#: 4 Functional Status: Reports: Pain Controlled, Ambulating, Urinating - Review of Systems General: Reports: No Symptoms Gastrointestinal: Reports: No Symptoms. Denies: Flatus - Patient Data Vitals - Most Recent: Last Vital Signs Temp 97.6 F 09/21/19 08:00 Pulse 90 09/21/19 08:00 Resp 24 H 09/21/19 08:00 BP 138/88 09/21/19 08:00 Pulse Ox 98 09/21/19 08:00 Weight - Most Recent: 74.446 kg I&O - Last 24 Hours: Intake & Output 09/20/19 09/21/19 09/21/19 22:59 06:59 14:59 Intake Total 1050 Output Total 325 600 Balance -325 450 Med Orders - Current: Current Medications Enoxaparin Sodium (Lovenox) 40 mg SUBCUT DAILY [facility] Last Admin: 09/20/19 09:30 Dose: 40 mg Lactated Ringer's (Ringers, Lactated) 1,000 mls @ 75 mls/hr IV ASDIRECTED [facility] Last Admin: 09/20/19 23:55 Dose: 75 mls/hr Metoclopramide HCl (Reglan) 5 mg IVPUSH Q6H [facility] Last Admin: 09/21/19 08:09 Dose: 5 mg Morphine Sulfate (Morphine) 1 mg IVPUSH Q1H PRN PRN Reason: Abdominal Pain Ondansetron HCl (Zofran) 4 mg IVPUSH Q6H PRN PRN Reason: Nausea/Vomiting Last Admin: 09/19/19 18:46 Dose: 4 mg Pantoprazole Sodium (Protonix Iv) 40 mg IVPUSH Q24H [facility] Last Admin: 09/20/19 14:11 Dose: 40 mg Sodium Chloride (Saline Flush) 10 ml FLUSH ASDIRECTED PRN PRN Reason: Keep Vein Open Last Admin: 09/21/19 01:53 Dose: 10 ml Discontinued Medications Cefoxitin Sodium (Mefoxin) 2 gm IVPUSH ONETIME ONE Stop: 09/16/19 07:25 Last Admin: 09/16/19 09:41 Dose: Not Given Sodium Chloride (Normal Saline) 1,000 mls @ 999 mls/hr IV ASDIRECTED [facility] Last Admin: 09/14/19 08:19 Dose: 999 mls/hr Sodium Chloride (Normal Saline) 1,000 mls @ 150 mls/hr IV ASDIRECTED [facility] Last Admin: 09/14/19 09:57 Dose: 150 mls/hr Sodium Chloride (Normal Saline) 1,000 mls @ 150 mls/hr IV ASDIRECTED [facility] Last Admin: 09/15/19 05:20 Dose: 150 mls/hr Potassium Cl/Dextrose/Lact Ringer's (D5 Lr With 20 Meq Kcl) 1,000 mls @ 50 mls/ hr IV Q8H [facility] Last Infusion: 09/15/19 17:22 Dose: 50 mls/hr Potassium Cl/Dextrose/Lact Ringer's (D5 Lr With 20 Meq Kcl) 1,000 mls @ 100 mls /hr IV ASDIRECTED [facility] Stop: 09/16/19 08:30 Last Infusion: 09/16/19 07:48 Dose: Infused Potassium Cl/Dextrose/Lact Ringer's (D5 Lr With 20 Meq Kcl) 1,000 mls @ 100 mls /hr IV Q10H [facility] Last Admin: 09/16/19 10:58 Dose: Not Given Potassium Cl/Dextrose/Lact Ringer's (D5 Lr With 20 Meq Kcl) 1,000 mls @ 150 mls /hr IV Q10H [facility] Stop: 09/17/19 19:59 Last Admin: 09/17/19 18:45 Dose: Not Given Sodium Chloride (Normal Saline) 500 mls @ 167 mls/hr IV ONETIME ONE Stop: 09/17/19 01:16 Last Admin: 09/16/19 22:26 Dose: 167 mls/hr Sodium Chloride (Normal Saline) 500 mls @ 999 mls/hr IV .BOLUS ONE Stop: 09/17/19 08:30 Last Admin: 09/17/19 07:58 Dose: 999 mls/hr Potassium Cl/Dextrose/Lact Ringer's (D5 Lr With 20 Meq Kcl) 1,000 mls @ 150 mls /hr IV Q7H [facility] Last Admin: 09/19/19 15:41 Dose: Not Given Iopamidol (Isovue-370 (76%)) 100 ml IV . DIRECTED ONE Stop: 09/14/19 08:33 Last Admin: 09/14/19 08:48 Dose: 79 ml Ketorolac Tromethamine (Toradol) 30 mg IVPUSH Q6H PRN PRN Reason: Abdominal Pain Stop: 09/19/19 12:39 Last Admin: 09/16/19 02:30 Dose: 30 mg Ketorolac Tromethamine (Toradol) 30 mg IVPUSH Q6H [facility] Stop: 09/21/19 08:59 Last Admin: 09/16/19 11:32 Dose: Not Given Ketorolac Tromethamine (Toradol) 30 mg IVPUSH Q6H [facility] Stop: 09/21/19 07:59 Last Admin: 09/21/19 01:53 Dose: 30 mg Lidocaine HCl (Glydo) 6 ml .XX NOW STA Stop: 09/14/19 09:27 Last Admin: 09/14/19 09:20 Dose: 6 ml Morphine Sulfate (Morphine) 2 mg IVPUSH ONETIME ONE Stop: 09/14/19 08:15 Last Admin: 09/14/19 08:21 Dose: 2 mg Ondansetron HCl (Zofran) 4 mg IVPUSH ONETIME ONE Stop: 09/14/19 08:15 Last Admin: 09/14/19 08:22 Dose: 4 mg Ondansetron HCl (Zofran) 4 mg IVPUSH Q4H PRN PRN Reason: Nausea/Vomiting Last Admin: 09/16/19 02:32 Dose: 4 mg - Exam Wound/Incisions: Healing Well, Dressing Dry and Intact General: Alert, Oriented GI/Abdominal Exam: Soft, Distended (about the same, moderate), Tender (very little) Sepsis Event Note - Evaluation Sepsis Screening Result: No Definite Risk - Focused Exam Vital Signs: Vital Signs Temp Pulse Resp BP Pulse Ox 09/21/19 08:00 97.6 F 90 24 H 138/88 98 09/21/19 00:00 98 F 74 20 137/75 97 Date Exam was Performed: 09/21/19 Time Exam was Performed: 09:33 - Problem List Review Problem List Initiated/Reviewed/Updated: Yes - My Orders Last 24 Hours: Active Orders 24 hr Category Date Time Status Communication Order [RC] 00,08,16 Care 09/20/19 17:33 Active Abdomen 2V AP Flat Upright [CR] Stat Exams 09/21/19 08:54 Ordered Medication Orders Enoxaparin Sodium (Lovenox) 40 mg SUBCUT DAILY [facility] Last Admin: 09/20/19 09:30 Dose: 40 mg Admin: 09/19/19 09:12 Dose: 40 mg Admin: 09/18/19 09:04 Dose: 40 mg Admin: 09/17/19 10:21 Dose: 40 mg Lactated Ringer's (Ringers, Lactated) 1,000 mls @ 75 mls/hr IV ASDIRECTED [facility] Last Admin: 09/20/19 23:55 Dose: 75 mls/hr Infusion: 09/20/19 23:44 Dose: 75 mls/hr Admin: 09/20/19 10:24 Dose: 75 mls/hr Infusion: 09/20/19 10:24 Dose: 75 mls/hr Admin: 09/19/19 21:22 Dose: 75 mls/hr Infusion: 09/19/19 21:22 Dose: 75 mls/hr Admin: 09/19/19 08:13 Dose: 75 mls/hr Infusion: 09/19/19 08:06 Dose: 75 mls/hr Admin: 09/18/19 18:46 Dose: 75 mls/hr Infusion: 09/16/19 17:30 Dose: 125 mls/hr Admin: 09/16/19 09:30 Dose: 125 mls/hr Metoclopramide HCl (Reglan) 5 mg IVPUSH Q6H [facility] Last Admin: 09/21/19 08:09 Dose: 5 mg Admin: 09/21/19 01:53 Dose: 5 mg Admin: 09/20/19 19:47 Dose: 5 mg Admin: 09/20/19 14:06 Dose: 5 mg Admin: 09/20/19 08:14 Dose: 5 mg Admin: 09/20/19 02:00 Dose: 5 mg Admin: 09/19/19 19:56 Dose: 5 mg Morphine Sulfate (Morphine) 1 mg IVPUSH Q1H PRN PRN Reason: Abdominal Pain Ondansetron HCl (Zofran) 4 mg IVPUSH Q6H PRN PRN Reason: Nausea/Vomiting Last Admin: 09/19/19 18:46 Dose: 4 mg Admin: 09/19/19 09:12 Dose: 4 mg Admin: 09/19/19 02:19 Dose: 4 mg Admin: 09/18/19 20:34 Dose: 4 mg Admin: 09/18/19 07:46 Dose: 4 mg Admin: 09/18/19 01:14 Dose: 4 mg Admin: 09/17/19 01:49 Dose: 4 mg Pantoprazole Sodium (Protonix Iv) 40 mg IVPUSH Q24H [facility] Last Admin: 09/20/19 14:11 Dose: 40 mg Admin: 09/19/19 13:21 Dose: 40 mg Admin: 09/18/19 12:56 Dose: 40 mg Admin: 09/17/19 13:51 Dose: 40 mg Admin: 09/16/19 15:18 Dose: 40 mg Admin: 09/15/19 13:07 Dose: 40 mg Admin: 09/14/19 13:22 Dose: 40 mg Sodium Chloride (Saline Flush) 10 ml FLUSH ASDIRECTED PRN PRN Reason: Keep Vein Open Last Admin: 09/21/19 01:53 Dose: 10 ml Admin: 09/20/19 19:48 Dose: 10 ml Admin: 09/20/19 02:02 Dose: 10 ml Admin: 09/20/19 02:01 Dose: 10 ml Admin: 09/19/19 20:04 Dose: 10 ml Admin: 09/19/19 20:00 Dose: 10 ml Admin: 09/19/19 13:22 Dose: 10 ml Admin: 09/19/19 02:18 Dose: 10 ml Admin: 09/18/19 20:35 Dose: 10 ml Admin: 09/18/19 20:11 Dose: 10 ml Admin: 09/18/19 01:15 Dose: 10 ml Admin: 09/17/19 19:40 Dose: 10 ml Admin: 09/17/19 13:54 Dose: 10 ml Admin: 09/17/19 01:55 Dose: 10 ml Admin: 09/17/19 01:52 Dose: 10 ml Admin: 09/16/19 15:19 Dose: 10 ml Admin: 09/16/19 02:30 Dose: 10 ml Admin: 09/14/19 08:24 Dose: 10 ml - Assessment Assessment (Free Text/Narrative):: SBO - Plan Plan (Free Text/Narrative):: Cont as is, await bowel function
[2019-09-21] MEDS ORDERED: Ketorolac 15 MG/ML SDV IVPUSH PRN (09:40)
--- NOTE | 2019-09-21 09:57 | PCM.SURGPN ---
- General Info Date of Service: 09/21/19 POD#: 5 Post-Op Diagnosis: SBO Functional Status: Reports: Pain Controlled, Ambulating, Urinating - Review of Systems General: Reports: No Symptoms Pulmonary: Reports: No Symptoms Gastrointestinal: Reports: No Symptoms, Flatus (small amount today), Nausea ( duing the night). Denies: Abdominal Pain Genitourinary: Reports: No Symptoms - Patient Data Vitals - Most Recent: Last Vital Signs Temp 97.6 F 09/21/19 08:00 Pulse 90 09/21/19 08:00 Resp 24 H 09/21/19 08:00 BP 138/88 09/21/19 08:00 Pulse Ox 98 09/21/19 08:00 Weight - Most Recent: 74.446 kg I&O - Last 24 Hours: Intake & Output 09/20/19 09/21/19 09/21/19 22:59 06:59 14:59 Intake Total 1050 Output Total 325 600 Balance -325 450 Med Orders - Current: Current Medications Enoxaparin Sodium (Lovenox) 40 mg SUBCUT DAILY [facility] Last Admin: 09/20/19 09:30 Dose: 40 mg Lactated Ringer's (Ringers, Lactated) 1,000 mls @ 75 mls/hr IV ASDIRECTED [facility] Last Admin: 09/20/19 23:55 Dose: 75 mls/hr Ketorolac Tromethamine (Toradol) 15 mg IVPUSH Q6H PRN PRN Reason: Abdominal Pain Stop: 09/26/19 09:40 Metoclopramide HCl (Reglan) 5 mg IVPUSH Q6H [facility] Last Admin: 09/21/19 08:09 Dose: 5 mg Morphine Sulfate (Morphine) 1 mg IVPUSH Q1H PRN PRN Reason: Abdominal Pain Ondansetron HCl (Zofran) 4 mg IVPUSH Q6H PRN PRN Reason: Nausea/Vomiting Last Admin: 09/19/19 18:46 Dose: 4 mg Pantoprazole Sodium (Protonix Iv) 40 mg IVPUSH Q24H [facility] Last Admin: 09/20/19 14:11 Dose: 40 mg Sodium Chloride (Saline Flush) 10 ml FLUSH ASDIRECTED PRN PRN Reason: Keep Vein Open Last Admin: 09/21/19 01:53 Dose: 10 ml Discontinued Medications Cefoxitin Sodium (Mefoxin) 2 gm IVPUSH ONETIME ONE Stop: 09/16/19 07:25 Last Admin: 09/16/19 09:41 Dose: Not Given Sodium Chloride (Normal Saline) 1,000 mls @ 999 mls/hr IV ASDIRECTED [facility] Last Admin: 09/14/19 08:19 Dose: 999 mls/hr Sodium Chloride (Normal Saline) 1,000 mls @ 150 mls/hr IV ASDIRECTED [facility] Last Admin: 09/14/19 09:57 Dose: 150 mls/hr Sodium Chloride (Normal Saline) 1,000 mls @ 150 mls/hr IV ASDIRECTED [facility] Last Admin: 09/15/19 05:20 Dose: 150 mls/hr Potassium Cl/Dextrose/Lact Ringer's (D5 Lr With 20 Meq Kcl) 1,000 mls @ 50 mls/ hr IV Q8H [facility] Last Infusion: 09/15/19 17:22 Dose: 50 mls/hr Potassium Cl/Dextrose/Lact Ringer's (D5 Lr With 20 Meq Kcl) 1,000 mls @ 100 mls /hr IV ASDIRECTED [facility] Stop: 09/16/19 08:30 Last Infusion: 09/16/19 07:48 Dose: Infused Potassium Cl/Dextrose/Lact Ringer's (D5 Lr With 20 Meq Kcl) 1,000 mls @ 100 mls /hr IV Q10H [facility] Last Admin: 09/16/19 10:58 Dose: Not Given Potassium Cl/Dextrose/Lact Ringer's (D5 Lr With 20 Meq Kcl) 1,000 mls @ 150 mls /hr IV Q10H [facility] Stop: 09/17/19 19:59 Last Admin: 09/17/19 18:45 Dose: Not Given Sodium Chloride (Normal Saline) 500 mls @ 167 mls/hr IV ONETIME ONE Stop: 09/17/19 01:16 Last Admin: 09/16/19 22:26 Dose: 167 mls/hr Sodium Chloride (Normal Saline) 500 mls @ 999 mls/hr IV .BOLUS ONE Stop: 09/17/19 08:30 Last Admin: 09/17/19 07:58 Dose: 999 mls/hr Potassium Cl/Dextrose/Lact Ringer's (D5 Lr With 20 Meq Kcl) 1,000 mls @ 150 mls /hr IV Q7H [facility] Last Admin: 09/19/19 15:41 Dose: Not Given Iopamidol (Isovue-370 (76%)) 100 ml IV . DIRECTED ONE Stop: 09/14/19 08:33 Last Admin: 09/14/19 08:48 Dose: 79 ml Ketorolac Tromethamine (Toradol) 30 mg IVPUSH Q6H PRN PRN Reason: Abdominal Pain Stop: 09/19/19 12:39 Last Admin: 09/16/19 02:30 Dose: 30 mg Ketorolac Tromethamine (Toradol) 30 mg IVPUSH Q6H [facility] Stop: 09/21/19 08:59 Last Admin: 09/16/19 11:32 Dose: Not Given Ketorolac Tromethamine (Toradol) 30 mg IVPUSH Q6H [facility] Stop: 09/21/19 07:59 Last Admin: 09/21/19 01:53 Dose: 30 mg Lidocaine HCl (Glydo) 6 ml .XX NOW STA Stop: 09/14/19 09:27 Last Admin: 09/14/19 09:20 Dose: 6 ml Morphine Sulfate (Morphine) 2 mg IVPUSH ONETIME ONE Stop: 09/14/19 08:15 Last Admin: 09/14/19 08:21 Dose: 2 mg Ondansetron HCl (Zofran) 4 mg IVPUSH ONETIME ONE Stop: 09/14/19 08:15 Last Admin: 09/14/19 08:22 Dose: 4 mg Ondansetron HCl (Zofran) 4 mg IVPUSH Q4H PRN PRN Reason: Nausea/Vomiting Last Admin: 09/16/19 02:32 Dose: 4 mg - Exam Wound/Incisions: Healing Well, Dressing Dry and Intact Lungs: Clear to Auscultation, Normal Respiratory Effort GI/Abdominal Exam: Soft, Non-Tender, Distended Sepsis Event Note - Evaluation Sepsis Screening Result: No Definite Risk - Focused Exam Vital Signs: Vital Signs Temp Pulse Resp BP Pulse Ox 09/21/19 08:00 97.6 F 90 24 H 138/88 98 09/21/19 00:00 98 F 74 20 137/75 97 Date Exam was Performed: 09/21/19 Time Exam was Performed: 09:54 - Problem List Review Problem List Initiated/Reviewed/Updated: Yes - My Orders Last 24 Hours: Active Orders 24 hr Category Date Time Status Communication Order [RC] 00,08,16 Care 09/20/19 17:33 Active Abdomen 2V AP Flat Upright [CR] Stat Exams 09/21/19 08:54 Taken CBC W/O DIFF,HEMOGRAM [HEME] Routine Lab 09/22/19 07:00 Ordered COMPREHENSIVE METABOLIC PN,CMP [CHEM] Routine Lab 09/22/19 07:00 Ordered Ketorolac [Toradol] Med 09/21/19 09:40 Ordered 15 mg IVPUSH Q6H PRN Medication Orders Enoxaparin Sodium (Lovenox) 40 mg SUBCUT DAILY [facility] Last Admin: 09/20/19 09:30 Dose: 40 mg Admin: 09/19/19 09:12 Dose: 40 mg Admin: 09/18/19 09:04 Dose: 40 mg Admin: 09/17/19 10:21 Dose: 40 mg Lactated Ringer's (Ringers, Lactated) 1,000 mls @ 75 mls/hr IV ASDIRECTED [facility] Last Admin: 09/20/19 23:55 Dose: 75 mls/hr Infusion: 09/20/19 23:44 Dose: 75 mls/hr Admin: 09/20/19 10:24 Dose: 75 mls/hr Infusion: 09/20/19 10:24 Dose: 75 mls/hr Admin: 09/19/19 21:22 Dose: 75 mls/hr Infusion: 09/19/19 21:22 Dose: 75 mls/hr Admin: 09/19/19 08:13 Dose: 75 mls/hr Infusion: 09/19/19 08:06 Dose: 75 mls/hr Admin: 09/18/19 18:46 Dose: 75 mls/hr Infusion: 09/16/19 17:30 Dose: 125 mls/hr Admin: 09/16/19 09:30 Dose: 125 mls/hr Ketorolac Tromethamine (Toradol) 15 mg IVPUSH Q6H PRN PRN Reason: Abdominal Pain Stop: 09/26/19 09:40 Metoclopramide HCl (Reglan) 5 mg IVPUSH Q6H [facility] Last Admin: 09/21/19 08:09 Dose: 5 mg Admin: 09/21/19 01:53 Dose: 5 mg Admin: 09/20/19 19:47 Dose: 5 mg Admin: 09/20/19 14:06 Dose: 5 mg Admin: 09/20/19 08:14 Dose: 5 mg Admin: 09/20/19 02:00 Dose: 5 mg Admin: 09/19/19 19:56 Dose: 5 mg Morphine Sulfate (Morphine) 1 mg IVPUSH Q1H PRN PRN Reason: Abdominal Pain Ondansetron HCl (Zofran) 4 mg IVPUSH Q6H PRN PRN Reason: Nausea/Vomiting Last Admin: 09/19/19 18:46 Dose: 4 mg Admin: 09/19/19 09:12 Dose: 4 mg Admin: 09/19/19 02:19 Dose: 4 mg Admin: 09/18/19 20:34 Dose: 4 mg Admin: 09/18/19 07:46 Dose: 4 mg Admin: 09/18/19 01:14 Dose: 4 mg Admin: 09/17/19 01:49 Dose: 4 mg Pantoprazole Sodium (Protonix Iv) 40 mg IVPUSH Q24H [facility] Last Admin: 09/20/19 14:11 Dose: 40 mg Admin: 09/19/19 13:21 Dose: 40 mg Admin: 09/18/19 12:56 Dose: 40 mg Admin: 09/17/19 13:51 Dose: 40 mg Admin: 09/16/19 15:18 Dose: 40 mg Admin: 09/15/19 13:07 Dose: 40 mg Admin: 09/14/19 13:22 Dose: 40 mg Sodium Chloride (Saline Flush) 10 ml FLUSH ASDIRECTED PRN PRN Reason: Keep Vein Open Last Admin: 09/21/19 01:53 Dose: 10 ml Admin: 09/20/19 19:48 Dose: 10 ml Admin: 09/20/19 02:02 Dose: 10 ml Admin: 09/20/19 02:01 Dose: 10 ml Admin: 09/19/19 20:04 Dose: 10 ml Admin: 09/19/19 20:00 Dose: 10 ml Admin: 09/19/19 13:22 Dose: 10 ml Admin: 09/19/19 02:18 Dose: 10 ml Admin: 09/18/19 20:35 Dose: 10 ml Admin: 09/18/19 20:11 Dose: 10 ml Admin: 09/18/19 01:15 Dose: 10 ml Admin: 09/17/19 19:40 Dose: 10 ml Admin: 09/17/19 13:54 Dose: 10 ml Admin: 09/17/19 01:55 Dose: 10 ml Admin: 09/17/19 01:52 Dose: 10 ml Admin: 09/16/19 15:19 Dose: 10 ml Admin: 09/16/19 02:30 Dose: 10 ml Admin: 09/14/19 08:24 Dose: 10 ml - Assessment Assessment (Free Text/Narrative):: SBO; AXR still show most of air n small bowel - Plan Plan (Free Text/Narrative):: Cont to await bowel fct
[2019-09-21] MEDS: Enoxaparin 40 MG/0.4 ML Syringe SUBCUT SCH (10:33)
--- NOTE | 2019-09-21 11:03 | CR ---
INDICATION: Check NG tube placement and status. Status post adhesiolysis. ABDOMEN, TWO VIEWS: Four images of the abdomen in supine and upright projections were obtained 09/21/19 and compared with 09/15/19, again revealing dilated loops of small bowel with air-fluid levels suggesting a distal small bowel obstruction. There is no free air under the hemidiaphragm leaves. There are again suggested pleural parenchymal changes at the lung bases, which could be on the basis of pneumonia and pleuritis and/or fibrosis, but should be correlated clinically. Tubing is noted overlying the right upper quadrant. Clips compatible with cholecystectomy are again noted. A nasogastric tube is now again noted in place but has been retracted somewhat so that its tip is in the fundus of the stomach. It should be advanced approximately 10 cm for better positioning. Evidence of interval surgery is noted in the area of the pelvis with metallic clips in the midline at the surgical site. There is questionable increase in density in the pelvis, which could be on the basis of ascites fluid but should be correlated clinically. Findings may simply be postsurgical in nature. IMPRESSION: 1. Continued distension of small bowel loops in this postsurgical patient. Findings may be partly on the basis of surgery but should be correlated clinically. 2. Nasogastric tube should be advanced approximately 10 cm. 3. There is an appearance suggesting bibasilar pleural parenchymal changes, which may be on the basis of pneumonia and pleuritis and/or atelectasis and should be correlated clinically. MTDD
[2019-09-21] MEDS: Pantoprazole 40 MG Vial IVPUSH SCH (12:54)
[2019-09-21] MEDS: Lactated Ringers 1,000 ML IV SCH (13:21)
[2019-09-22] MEDS: Metoclopramide 10 MG/2 ML SDV IVPUSH SCH ×4 (01:34→19:39)
[2019-09-22] MEDS: Lactated Ringers 1,000 ML IV SCH (02:43)
[2019-09-22] MEDS: Enoxaparin 40 MG/0.4 ML Syringe SUBCUT SCH (08:14)
--- NOTE | 2019-09-22 12:27 | PCM.SURGPN ---
- General Info Date of Service: 09/22/19 POD#: 6 Functional Status: Reports: Pain Controlled, Ambulating, Urinating - Review of Systems General: Reports: No Symptoms Pulmonary: Reports: No Symptoms Gastrointestinal: Reports: No Symptoms, Flatus. Denies: Abdominal Pain - Patient Data Vitals - Most Recent: Last Vital Signs Temp 98.5 F 09/22/19 00:00 Pulse 73 09/22/19 00:00 Resp 17 09/22/19 00:00 BP 150/88 H 09/22/19 00:00 Pulse Ox 98 09/22/19 00:00 Weight - Most Recent: 74.446 kg I&O - Last 24 Hours: Intake & Output 09/21/19 09/22/19 09/22/19 22:59 06:59 14:59 Intake Total 832 Output Total 310 380 Balance 522 -380 Lab Results Last 24 Hrs: Laboratory Results - last 24 hr 09/22/19 09/22/19 Range/Units 06:25 06:25 WBC 5.7 (4.5-12.0) X10-3/uL RBC 3.95 (3.23-5.20) x10(6)uL Hgb 12.2 (11.5-15.5) g/dL Hct 36.2 (30.0-51.3) % MCV 91.7 (80-96) fL MCH 30.8 (27.7-33.6) pg MCHC 33.6 (32.2-35.4) g/dL RDW 12.6 (11.5-15.5) % Plt Count 355 (125-369) X10(3)uL Sodium 137 (135-145) mmol/L Potassium 3.3 L (3.5-5.3) mmol/L Chloride 105 (100-110) mmol/L Carbon Dioxide 14 L (21-32) mmol/L BUN 3 L (7-18) mg/dL Creatinine 0.5 L (0.55-1.02) mg/dL Est Cr Clr Drug Dosing 93.45 mL/min Estimated GFR (MDRD) > 60 (>60) BUN/Creatinine Ratio 6.0 L (9-20) Glucose 67 L (80-116) mg/dL Calcium 7.6 L (8.6-10.2) mg/dL Total Bilirubin 0.7 (0.1-1.3) mg/dL AST 29 H D (5-25) IU/L ALT 36 D (12-36) U/L Alkaline Phosphatase 79 (56-112) IU/L Total Protein 5.6 L (6.0-8.0) g/dL Albumin 2.3 L (3.2-4.6) g/dL Globulin 3.3 g/dL Albumin/Globulin Ratio 0.7 Med Orders - Current: Current Medications Enoxaparin Sodium (Lovenox) 40 mg SUBCUT DAILY [facility] Last Admin: 09/22/19 08:14 Dose: 40 mg Documented by: Lactated Ringer's (Ringers, Lactated) 1,000 mls @ 75 mls/hr IV ASDIRECTED [facility] Last Admin: 09/22/19 02:43 Dose: 75 mls/hr Documented by: Ketorolac Tromethamine (Toradol) 15 mg IVPUSH Q6H PRN PRN Reason: Abdominal Pain Stop: 09/26/19 09:40 Metoclopramide HCl (Reglan) 5 mg IVPUSH Q6H [facility] Last Admin: 09/22/19 08:13 Dose: 5 mg Documented by: Morphine Sulfate (Morphine) 1 mg IVPUSH Q1H PRN PRN Reason: Abdominal Pain Ondansetron HCl (Zofran) 4 mg IVPUSH Q6H PRN PRN Reason: Nausea/Vomiting Last Admin: 09/19/19 18:46 Dose: 4 mg Documented by: Pantoprazole Sodium (Protonix Iv) 40 mg IVPUSH Q24H [facility] Last Admin: 09/21/19 12:54 Dose: 40 mg Documented by: Sodium Chloride (Saline Flush) 10 ml FLUSH ASDIRECTED PRN PRN Reason: Keep Vein Open Last Admin: 09/21/19 01:53 Dose: 10 ml Documented by: Discontinued Medications Cefoxitin Sodium (Mefoxin) 2 gm IVPUSH ONETIME ONE Stop: 09/16/19 07:25 Last Admin: 09/16/19 09:41 Dose: Not Given Documented by: Sodium Chloride (Normal Saline) 1,000 mls @ 999 mls/hr IV ASDIRECTED [facility] Last Admin: 09/14/19 08:19 Dose: 999 mls/hr Documented by: Sodium Chloride (Normal Saline) 1,000 mls @ 150 mls/hr IV ASDIRECTED [facility] Last Admin: 09/14/19 09:57 Dose: 150 mls/hr Documented by: Sodium Chloride (Normal Saline) 1,000 mls @ 150 mls/hr IV ASDIRECTED [facility] Last Admin: 09/15/19 05:20 Dose: 150 mls/hr Documented by: Potassium Cl/Dextrose/Lact Ringer's (D5 Lr With 20 Meq Kcl) 1,000 mls @ 50 mls/hr IV Q8H [facility] Last Infusion: 09/15/19 17:22 Dose: 50 mls/hr Documented by: Potassium Cl/Dextrose/Lact Ringer's (D5 Lr With 20 Meq Kcl) 1,000 mls @ 100 mls/hr IV ASDIRECTED [facility] Stop: 09/16/19 08:30 Last Infusion: 09/16/19 07:48 Dose: Infused Documented by: Potassium Cl/Dextrose/Lact Ringer's (D5 Lr With 20 Meq Kcl) 1,000 mls @ 100 mls/hr IV Q10H [facility] Last Admin: 09/16/19 10:58 Dose: Not Given Documented by: Potassium Cl/Dextrose/Lact Ringer's (D5 Lr With 20 Meq Kcl) 1,000 mls @ 150 mls/hr IV Q10H [facility] Stop: 09/17/19 19:59 Last Admin: 09/17/19 18:45 Dose: Not Given Documented by: Sodium Chloride (Normal Saline) 500 mls @ 167 mls/hr IV ONETIME ONE Stop: 09/17/19 01:16 Last Admin: 09/16/19 22:26 Dose: 167 mls/hr Documented by: Sodium Chloride (Normal Saline) 500 mls @ 999 mls/hr IV .BOLUS ONE Stop: 09/17/19 08:30 Last Admin: 09/17/19 07:58 Dose: 999 mls/hr Documented by: Potassium Cl/Dextrose/Lact Ringer's (D5 Lr With 20 Meq Kcl) 1,000 mls @ 150 mls/hr IV Q7H [facility] Last Admin: 09/19/19 15:41 Dose: Not Given Documented by: Iopamidol (Isovue-370 (76%)) 100 ml IV . DIRECTED ONE Stop: 09/14/19 08:33 Last Admin: 09/14/19 08:48 Dose: 79 ml Documented by: Ketorolac Tromethamine (Toradol) 30 mg IVPUSH Q6H PRN PRN Reason: Abdominal Pain Stop: 09/19/19 12:39 Last Admin: 09/16/19 02:30 Dose: 30 mg Documented by: Ketorolac Tromethamine (Toradol) 30 mg IVPUSH Q6H [facility] Stop: 09/21/19 08:59 Last Admin: 09/16/19 11:32 Dose: Not Given Documented by: Ketorolac Tromethamine (Toradol) 30 mg IVPUSH Q6H [facility] Stop: 09/21/19 07:59 Last Admin: 09/21/19 01:53 Dose: 30 mg Documented by: Lidocaine HCl (Glydo) 6 ml .XX NOW STA Stop: 09/14/19 09:27 Last Admin: 09/14/19 09:20 Dose: 6 ml Documented by: Morphine Sulfate (Morphine) 2 mg IVPUSH ONETIME ONE Stop: 09/14/19 08:15 Last Admin: 09/14/19 08:21 Dose: 2 mg Documented by: Ondansetron HCl (Zofran) 4 mg IVPUSH ONETIME ONE Stop: 09/14/19 08:15 Last Admin: 09/14/19 08:22 Dose: 4 mg Documented by: Ondansetron HCl (Zofran) 4 mg IVPUSH Q4H PRN PRN Reason: Nausea/Vomiting Last Admin: 09/16/19 02:32 Dose: 4 mg Documented by: - Exam Wound/Incisions: Healing Well, Dressing Dry and Intact GI/Abdominal Exam: Soft, Non-Tender, Distended (less today) Sepsis Event Note - Evaluation Sepsis Screening Result: No Definite Risk - Focused Exam Date Exam was Performed: 09/22/19 Time Exam was Performed: 12:25 - Problem List Review Problem List Initiated/Reviewed/Updated: Yes - My Orders Last 24 Hours: Medication Orders Enoxaparin Sodium (Lovenox) 40 mg SUBCUT DAILY [facility] Last Admin: 09/22/19 08:14 Dose: 40 mg Documented by: Admin: 09/21/19 10:33 Dose: 40 mg Documented by: Admin: 09/20/19 09:30 Dose: 40 mg Documented by: Admin: 09/19/19 09:12 Dose: 40 mg Documented by: Admin: 09/18/19 09:04 Dose: 40 mg Documented by: Admin: 09/17/19 10:21 Dose: 40 mg Documented by: RANGEL Lactated Ringer's (Ringers, Lactated) 1,000 mls @ 75 mls/hr IV ASDIRECTED [facility] Last Admin: 09/22/19 02:43 Dose: 75 mls/hr Documented by: Infusion: 09/22/19 02:41 Dose: 75 mls/hr Documented by: Admin: 09/21/19 13:21 Dose: 75 mls/hr Documented by: Infusion: 09/21/19 13:15 Dose: 75 mls/hr Documented by: Admin: 09/20/19 23:55 Dose: 75 mls/hr Documented by: Infusion: 09/20/19 23:44 Dose: 75 mls/hr Documented by: Admin: 09/20/19 10:24 Dose: 75 mls/hr Documented by: Infusion: 09/20/19 10:24 Dose: 75 mls/hr Documented by: Admin: 09/19/19 21:22 Dose: 75 mls/hr Documented by: Infusion: 09/19/19 21:22 Dose: 75 mls/hr Documented by: Admin: 09/19/19 08:13 Dose: 75 mls/hr Documented by: Infusion: 09/19/19 08:06 Dose: 75 mls/hr Documented by: Admin: 09/18/19 18:46 Dose: 75 mls/hr Documented by: Infusion: 09/16/19 17:30 Dose: 125 mls/hr Documented by: Admin: 09/16/19 09:30 Dose: 125 mls/hr Documented by: JUWAN Ketorolac Tromethamine (Toradol) 15 mg IVPUSH Q6H PRN PRN Reason: Abdominal Pain Stop: 09/26/19 09:40 Metoclopramide HCl (Reglan) 5 mg IVPUSH Q6H [facility] Last Admin: 09/22/19 08:13 Dose: 5 mg Documented by: Admin: 09/22/19 01:34 Dose: 5 mg Documented by: Admin: 09/21/19 19:50 Dose: 5 mg Documented by: Admin: 09/21/19 14:30 Dose: 5 mg Documented by: Admin: 09/21/19 08:09 Dose: 5 mg Documented by: Admin: 09/21/19 01:53 Dose: 5 mg Documented by: Admin: 09/20/19 19:47 Dose: 5 mg Documented by: Admin: 09/20/19 14:06 Dose: 5 mg Documented by: Admin: 09/20/19 08:14 Dose: 5 mg Documented by: Admin: 09/20/19 02:00 Dose: 5 mg Documented by: Admin: 09/19/19 19:56 Dose: 5 mg Documented by: CHARLA Morphine Sulfate (Morphine) 1 mg IVPUSH Q1H PRN PRN Reason: Abdominal Pain Ondansetron HCl (Zofran) 4 mg IVPUSH Q6H PRN PRN Reason: Nausea/Vomiting Last Admin: 09/19/19 18:46 Dose: 4 mg Documented by: Admin: 09/19/19 09:12 Dose: 4 mg Documented by: Admin: 09/19/19 02:19 Dose: 4 mg Documented by: Admin: 09/18/19 20:34 Dose: 4 mg Documented by: Admin: 09/18/19 07:46 Dose: 4 mg Documented by: Admin: 09/18/19 01:14 Dose: 4 mg Documented by: Admin: 09/17/19 01:49 Dose: 4 mg Documented by: DARIUS Pantoprazole Sodium (Protonix Iv) 40 mg IVPUSH Q24H [facility] Last Admin: 09/21/19 12:54 Dose: 40 mg Documented by: Admin: 09/20/19 14:11 Dose: 40 mg Documented by: Admin: 09/19/19 13:21 Dose: 40 mg Documented by: Admin: 09/18/19 12:56 Dose: 40 mg Documented by: Admin: 09/17/19 13:51 Dose: 40 mg Documented by: Admin: 09/16/19 15:18 Dose: 40 mg Documented by: Admin: 09/15/19 13:07 Dose: 40 mg Documented by: Admin: 09/14/19 13:22 Dose: 40 mg Documented by: TAVARES Sodium Chloride (Saline Flush) 10 ml FLUSH ASDIRECTED PRN PRN Reason: Keep Vein Open Last Admin: 09/21/19 01:53 Dose: 10 ml Documented by: Admin: 09/20/19 19:48 Dose: 10 ml Documented by: Admin: 09/20/19 02:02 Dose: 10 ml Documented by: Admin: 09/20/19 02:01 Dose: 10 ml Documented by: Admin: 09/19/19 20:04 Dose: 10 ml Documented by: Admin: 09/19/19 20:00 Dose: 10 ml Documented by: Admin: 09/19/19 13:22 Dose: 10 ml Documented by: Admin: 09/19/19 02:18 Dose: 10 ml Documented by: Admin: 09/18/19 20:35 Dose: 10 ml Documented by: Admin: 09/18/19 20:11 Dose: 10 ml Documented by: Admin: 09/18/19 01:15 Dose: 10 ml Documented by: Admin: 09/17/19 19:40 Dose: 10 ml Documented by: Admin: 09/17/19 13:54 Dose: 10 ml Documented by: Admin: 09/17/19 01:55 Dose: 10 ml Documented by: Admin: 09/17/19 01:52 Dose: 10 ml Documented by: Admin: 09/16/19 15:19 Dose: 10 ml Documented by: Admin: 09/16/19 02:30 Dose: 10 ml Documented by: Admin: 09/14/19 08:24 Dose: 10 ml Documented by: LEFTY - Assessment Assessment (Free Text/Narrative):: SBO resolving - Plan Plan (Free Text/Narrative):: Tolerating NG out since this am. Still some distension, start po tomorrow if cont loida do well
[2019-09-22] MEDS: Dextrose 5%-Lact Ringers w/KCl 1,000 ML IV SCH ×2 (12:49→22:32)
[2019-09-22] MEDS: Pantoprazole 40 MG Vial IVPUSH SCH (12:53)
[2019-09-23] MEDS: Metoclopramide 10 MG/2 ML SDV IVPUSH SCH ×2 (01:23→08:00)
[2019-09-23] MEDS: Sodium Chloride 0.9% 10 ML Syringe FLUSH PRN (08:00)
[2019-09-23] MEDS: Enoxaparin 40 MG/0.4 ML Syringe SUBCUT SCH (08:00)
[2019-09-23] MEDS: Dextrose 5%-Lact Ringers w/KCl 1,000 ML IV SCH (09:13)
--- NOTE | 2019-09-23 10:48 | PCM.SURGPN ---
- General Info Date of Service: 09/23/19 POD#: 7 Functional Status: Reports: Pain Controlled, Tolerating Diet, Ambulating, Urinating - Review of Systems General: Reports: No Symptoms Pulmonary: Reports: No Symptoms Gastrointestinal: Reports: No Symptoms, Flatus - Patient Data Vitals - Most Recent: Last Vital Signs Temp 97.8 F 09/23/19 04:00 Pulse 79 09/23/19 04:00 Resp 17 09/23/19 04:00 BP 159/84 H 09/23/19 04:00 Pulse Ox 95 09/23/19 04:00 Weight - Most Recent: 74.446 kg I&O - Last 24 Hours: Intake & Output 09/22/19 09/23/19 09/23/19 22:59 06:59 14:59 Intake Total 770 741 Output Total 200 600 Balance 570 141 Med Orders - Current: Current Medications Enoxaparin Sodium (Lovenox) 40 mg SUBCUT DAILY [facility] Last Admin: 09/23/19 08:00 Dose: 40 mg Documented by: Potassium Cl/Dextrose/Lact Ringer's (D5 Lr With 20 Meq Kcl) 1,000 mls @ 100 mls/hr IV Q10H [facility] Last Infusion: 09/23/19 09:42 Dose: 0 mls/hr Documented by: Ketorolac Tromethamine (Toradol) 15 mg IVPUSH Q6H PRN PRN Reason: Abdominal Pain Stop: 09/26/19 09:40 Morphine Sulfate (Morphine) 1 mg IVPUSH Q1H PRN PRN Reason: Abdominal Pain Ondansetron HCl (Zofran) 4 mg IVPUSH Q6H PRN PRN Reason: Nausea/Vomiting Last Admin: 09/19/19 18:46 Dose: 4 mg Documented by: Pantoprazole Sodium (Protonix Iv) 40 mg IVPUSH Q24H [facility] Last Admin: 09/22/19 12:53 Dose: 40 mg Documented by: Sodium Chloride (Saline Flush) 10 ml FLUSH ASDIRECTED PRN PRN Reason: Keep Vein Open Last Admin: 09/23/19 08:00 Dose: 10 ml Documented by: Discontinued Medications Cefoxitin Sodium (Mefoxin) 2 gm IVPUSH ONETIME ONE Stop: 09/16/19 07:25 Last Admin: 09/16/19 09:41 Dose: Not Given Documented by: Sodium Chloride (Normal Saline) 1,000 mls @ 999 mls/hr IV ASDIRECTED [facility] Last Admin: 09/14/19 08:19 Dose: 999 mls/hr Documented by: Sodium Chloride (Normal Saline) 1,000 mls @ 150 mls/hr IV ASDIRECTED [facility] Last Admin: 09/14/19 09:57 Dose: 150 mls/hr Documented by: Sodium Chloride (Normal Saline) 1,000 mls @ 150 mls/hr IV ASDIRECTED [facility] Last Admin: 09/15/19 05:20 Dose: 150 mls/hr Documented by: Potassium Cl/Dextrose/Lact Ringer's (D5 Lr With 20 Meq Kcl) 1,000 mls @ 50 mls/hr IV Q8H [facility] Last Infusion: 09/15/19 17:22 Dose: 50 mls/hr Documented by: Potassium Cl/Dextrose/Lact Ringer's (D5 Lr With 20 Meq Kcl) 1,000 mls @ 100 mls/hr IV ASDIRECTED [facility] Stop: 09/16/19 08:30 Last Infusion: 09/16/19 07:48 Dose: Infused Documented by: Potassium Cl/Dextrose/Lact Ringer's (D5 Lr With 20 Meq Kcl) 1,000 mls @ 100 mls/hr IV Q10H [facility] Last Admin: 09/16/19 10:58 Dose: Not Given Documented by: Lactated Ringer's (Ringers, Lactated) 1,000 mls @ 75 mls/hr IV ASDIRECTED [facility] Last Admin: 09/22/19 02:43 Dose: 75 mls/hr Documented by: Potassium Cl/Dextrose/Lact Ringer's (D5 Lr With 20 Meq Kcl) 1,000 mls @ 150 mls/hr IV Q10H [facility] Stop: 09/17/19 19:59 Last Admin: 09/17/19 18:45 Dose: Not Given Documented by: Sodium Chloride (Normal Saline) 500 mls @ 167 mls/hr IV ONETIME ONE Stop: 09/17/19 01:16 Last Admin: 09/16/19 22:26 Dose: 167 mls/hr Documented by: Sodium Chloride (Normal Saline) 500 mls @ 999 mls/hr IV .BOLUS ONE Stop: 09/17/19 08:30 Last Admin: 09/17/19 07:58 Dose: 999 mls/hr Documented by: Potassium Cl/Dextrose/Lact Ringer's (D5 Lr With 20 Meq Kcl) 1,000 mls @ 150 mls/hr IV Q7H [facility] Last Admin: 09/19/19 15:41 Dose: Not Given Documented by: Iopamidol (Isovue-370 (76%)) 100 ml IV . DIRECTED ONE Stop: 09/14/19 08:33 Last Admin: 09/14/19 08:48 Dose: 79 ml Documented by: Ketorolac Tromethamine (Toradol) 30 mg IVPUSH Q6H PRN PRN Reason: Abdominal Pain Stop: 09/19/19 12:39 Last Admin: 09/16/19 02:30 Dose: 30 mg Documented by: Ketorolac Tromethamine (Toradol) 30 mg IVPUSH Q6H [facility] Stop: 09/21/19 08:59 Last Admin: 09/16/19 11:32 Dose: Not Given Documented by: Ketorolac Tromethamine (Toradol) 30 mg IVPUSH Q6H [facility] Stop: 09/21/19 07:59 Last Admin: 09/21/19 01:53 Dose: 30 mg Documented by: Lidocaine HCl (Glydo) 6 ml .XX NOW STA Stop: 09/14/19 09:27 Last Admin: 09/14/19 09:20 Dose: 6 ml Documented by: Metoclopramide HCl (Reglan) 5 mg IVPUSH Q6H [facility] Last Admin: 09/23/19 08:00 Dose: 5 mg Documented by: Morphine Sulfate (Morphine) 2 mg IVPUSH ONETIME ONE Stop: 09/14/19 08:15 Last Admin: 09/14/19 08:21 Dose: 2 mg Documented by: Ondansetron HCl (Zofran) 4 mg IVPUSH ONETIME ONE Stop: 09/14/19 08:15 Last Admin: 09/14/19 08:22 Dose: 4 mg Documented by: Ondansetron HCl (Zofran) 4 mg IVPUSH Q4H PRN PRN Reason: Nausea/Vomiting Last Admin: 09/16/19 02:32 Dose: 4 mg Documented by: - Exam Wound/Incisions: Healing Well GI/Abdominal Exam: Soft, Non-Tender, Distended (less each day) Sepsis Event Note - Evaluation Sepsis Screening Result: No Definite Risk - Focused Exam Vital Signs: Vital Signs Temp Pulse Resp BP Pulse Ox 09/23/19 04:00 97.8 F 79 17 159/84 H 95 09/23/19 00:00 98.0 F 69 17 140/75 98 Date Exam was Performed: 09/23/19 Time Exam was Performed: 10:46 - Problem List Review Problem List Initiated/Reviewed/Updated: Yes - My Orders Last 24 Hours: Active Orders 24 hr Category Date Time Status Clear Liquid Diet [DIET] Diet 09/22/19 Dinner Active Dextrose 5%-Lact Ringers w/KCl [D5 LR with 20 mEq KCl] Med 09/22/19 12:45 Active 1,000 ml IV Q10H Medication Orders Enoxaparin Sodium (Lovenox) 40 mg SUBCUT DAILY [facility] Last Admin: 09/23/19 08:00 Dose: 40 mg Documented by: Admin: 09/22/19 08:14 Dose: 40 mg Documented by: Admin: 09/21/19 10:33 Dose: 40 mg Documented by: Admin: 09/20/19 09:30 Dose: 40 mg Documented by: Admin: 09/19/19 09:12 Dose: 40 mg Documented by: Admin: 09/18/19 09:04 Dose: 40 mg Documented by: Admin: 09/17/19 10:21 Dose: 40 mg Documented by: RANGEL Potassium Cl/Dextrose/Lact Ringer's (D5 Lr With 20 Meq Kcl) 1,000 mls @ 100 mls/hr IV Q10H [facility] Last Infusion: 09/23/19 09:42 Dose: 0 mls/hr Documented by: Admin: 09/23/19 09:13 Dose: 100 mls/hr Documented by: Infusion: 09/23/19 08:32 Dose: 100 mls/hr Documented by: Admin: 09/22/19 22:32 Dose: 100 mls/hr Documented by: Infusion: 09/22/19 22:32 Dose: 100 mls/hr Documented by: Admin: 09/22/19 12:49 Dose: 100 mls/hr Documented by: JULIA Ketorolac Tromethamine (Toradol) 15 mg IVPUSH Q6H PRN PRN Reason: Abdominal Pain Stop: 09/26/19 09:40 Morphine Sulfate (Morphine) 1 mg IVPUSH Q1H PRN PRN Reason: Abdominal Pain Ondansetron HCl (Zofran) 4 mg IVPUSH Q6H PRN PRN Reason: Nausea/Vomiting Last Admin: 09/19/19 18:46 Dose: 4 mg Documented by: Admin: 09/19/19 09:12 Dose: 4 mg Documented by: Admin: 09/19/19 02:19 Dose: 4 mg Documented by: Admin: 09/18/19 20:34 Dose: 4 mg Documented by: Admin: 09/18/19 07:46 Dose: 4 mg Documented by: Admin: 09/18/19 01:14 Dose: 4 mg Documented by: Admin: 09/17/19 01:49 Dose: 4 mg Documented by: DARIUS Pantoprazole Sodium (Protonix Iv) 40 mg IVPUSH Q24H [facility] Last Admin: 09/22/19 12:53 Dose: 40 mg Documented by: Admin: 09/21/19 12:54 Dose: 40 mg Documented by: Admin: 09/20/19 14:11 Dose: 40 mg Documented by: Admin: 09/19/19 13:21 Dose: 40 mg Documented by: Admin: 09/18/19 12:56 Dose: 40 mg Documented by: Admin: 09/17/19 13:51 Dose: 40 mg Documented by: Admin: 09/16/19 15:18 Dose: 40 mg Documented by: Admin: 09/15/19 13:07 Dose: 40 mg Documented by: Admin: 09/14/19 13:22 Dose: 40 mg Documented by: TAVARES Sodium Chloride (Saline Flush) 10 ml FLUSH ASDIRECTED PRN PRN Reason: Keep Vein Open Last Admin: 09/23/19 08:00 Dose: 10 ml Documented by: Admin: 09/21/19 01:53 Dose: 10 ml Documented by: Admin: 09/20/19 19:48 Dose: 10 ml Documented by: Admin: 09/20/19 02:02 Dose: 10 ml Documented by: Admin: 09/20/19 02:01 Dose: 10 ml Documented by: Admin: 09/19/19 20:04 Dose: 10 ml Documented by: Admin: 09/19/19 20:00 Dose: 10 ml Documented by: Admin: 09/19/19 13:22 Dose: 10 ml Documented by: Admin: 09/19/19 02:18 Dose: 10 ml Documented by: Admin: 09/18/19 20:35 Dose: 10 ml Documented by: Admin: 09/18/19 20:11 Dose: 10 ml Documented by: Admin: 09/18/19 01:15 Dose: 10 ml Documented by: Admin: 09/17/19 19:40 Dose: 10 ml Documented by: Admin: 09/17/19 13:54 Dose: 10 ml Documented by: Admin: 09/17/19 01:55 Dose: 10 ml Documented by: Admin: 09/17/19 01:52 Dose: 10 ml Documented by: Admin: 09/16/19 15:19 Dose: 10 ml Documented by: Admin: 09/16/19 02:30 Dose: 10 ml Documented by: Admin: 09/14/19 08:24 Dose: 10 ml Documented by: LEFTY - Assessment Assessment (Free Text/Narrative):: SBO resolving, tolerating clear liquids - Plan Plan (Free Text/Narrative):: Slowly advance diet
[2019-09-23] MEDS: Pantoprazole 40 MG Vial IVPUSH SCH (15:37)
[2019-09-24] MEDS: Enoxaparin 40 MG/0.4 ML Syringe SUBCUT SCH (08:24)
--- NOTE | 2019-09-24 08:45 | PCM.SURGPN ---
- General Info Date of Service: 09/24/19 POD#: 1 Functional Status: Reports: Pain Controlled, Tolerating Diet, Ambulating, Urinating - Review of Systems General: Reports: No Symptoms. Denies: Fever Gastrointestinal: Reports: No Symptoms, Abdominal Pain (mild incisional) - Patient Data Vitals - Most Recent: Last Vital Signs Temp 97.9 F 09/24/19 03:00 Pulse 77 09/24/19 03:00 Resp 16 09/24/19 03:00 BP 120/75 09/24/19 03:00 Pulse Ox 97 09/24/19 03:00 Weight - Most Recent: 74.446 kg I&O - Last 24 Hours: Intake & Output 09/23/19 09/24/19 09/24/19 22:59 06:59 14:59 Intake Total 200 200 Output Total 200 600 300 Balance 0 -400 -300 Lab Results Last 24 Hrs: WBC 21K Med Orders - Current: Current Medications Enoxaparin Sodium (Lovenox) 40 mg SUBCUT DAILY [facility] Last Admin: 09/24/19 08:24 Dose: 40 mg Documented by: Ketorolac Tromethamine (Toradol) 15 mg IVPUSH Q6H PRN PRN Reason: Abdominal Pain Stop: 09/26/19 09:40 Morphine Sulfate (Morphine) 1 mg IVPUSH Q1H PRN PRN Reason: Abdominal Pain Ondansetron HCl (Zofran) 4 mg IVPUSH Q6H PRN PRN Reason: Nausea/Vomiting Last Admin: 09/19/19 18:46 Dose: 4 mg Documented by: Sodium Chloride (Saline Flush) 10 ml FLUSH ASDIRECTED PRN PRN Reason: Keep Vein Open Last Admin: 09/23/19 08:00 Dose: 10 ml Documented by: Discontinued Medications Cefoxitin Sodium (Mefoxin) 2 gm IVPUSH ONETIME ONE Stop: 09/16/19 07:25 Last Admin: 09/16/19 09:41 Dose: Not Given Documented by: Sodium Chloride (Normal Saline) 1,000 mls @ 999 mls/hr IV ASDIRECTED [facility] Last Admin: 09/14/19 08:19 Dose: 999 mls/hr Documented by: Sodium Chloride (Normal Saline) 1,000 mls @ 150 mls/hr IV ASDIRECTED [facility] Last Admin: 09/14/19 09:57 Dose: 150 mls/hr Documented by: Sodium Chloride (Normal Saline) 1,000 mls @ 150 mls/hr IV ASDIRECTED [facility] Last Admin: 09/15/19 05:20 Dose: 150 mls/hr Documented by: Potassium Cl/Dextrose/Lact Ringer's (D5 Lr With 20 Meq Kcl) 1,000 mls @ 50 mls/hr IV Q8H [facility] Last Infusion: 09/15/19 17:22 Dose: 50 mls/hr Documented by: Potassium Cl/Dextrose/Lact Ringer's (D5 Lr With 20 Meq Kcl) 1,000 mls @ 100 mls/hr IV ASDIRECTED [facility] Stop: 09/16/19 08:30 Last Infusion: 09/16/19 07:48 Dose: Infused Documented by: Potassium Cl/Dextrose/Lact Ringer's (D5 Lr With 20 Meq Kcl) 1,000 mls @ 100 mls/hr IV Q10H [facility] Last Admin: 09/16/19 10:58 Dose: Not Given Documented by: Lactated Ringer's (Ringers, Lactated) 1,000 mls @ 75 mls/hr IV ASDIRECTED [facility] Last Admin: 09/22/19 02:43 Dose: 75 mls/hr Documented by: Potassium Cl/Dextrose/Lact Ringer's (D5 Lr With 20 Meq Kcl) 1,000 mls @ 150 mls/hr IV Q10H [facility] Stop: 09/17/19 19:59 Last Admin: 09/17/19 18:45 Dose: Not Given Documented by: Sodium Chloride (Normal Saline) 500 mls @ 167 mls/hr IV ONETIME ONE Stop: 09/17/19 01:16 Last Admin: 09/16/19 22:26 Dose: 167 mls/hr Documented by: Sodium Chloride (Normal Saline) 500 mls @ 999 mls/hr IV .BOLUS ONE Stop: 09/17/19 08:30 Last Admin: 09/17/19 07:58 Dose: 999 mls/hr Documented by: Potassium Cl/Dextrose/Lact Ringer's (D5 Lr With 20 Meq Kcl) 1,000 mls @ 150 mls/hr IV Q7H [facility] Last Admin: 09/19/19 15:41 Dose: Not Given Documented by: Potassium Cl/Dextrose/Lact Ringer's (D5 Lr With 20 Meq Kcl) 1,000 mls @ 100 mls/hr IV Q10H [facility] Last Infusion: 09/23/19 09:42 Dose: 0 mls/hr Documented by: Iopamidol (Isovue-370 (76%)) 100 ml IV . DIRECTED ONE Stop: 09/14/19 08:33 Last Admin: 09/14/19 08:48 Dose: 79 ml Documented by: Ketorolac Tromethamine (Toradol) 30 mg IVPUSH Q6H PRN PRN Reason: Abdominal Pain Stop: 09/19/19 12:39 Last Admin: 09/16/19 02:30 Dose: 30 mg Documented by: Ketorolac Tromethamine (Toradol) 30 mg IVPUSH Q6H [facility] Stop: 09/21/19 08:59 Last Admin: 09/16/19 11:32 Dose: Not Given Documented by: Ketorolac Tromethamine (Toradol) 30 mg IVPUSH Q6H [facility] Stop: 09/21/19 07:59 Last Admin: 09/21/19 01:53 Dose: 30 mg Documented by: Lidocaine HCl (Glydo) 6 ml .XX NOW STA Stop: 09/14/19 09:27 Last Admin: 09/14/19 09:20 Dose: 6 ml Documented by: Metoclopramide HCl (Reglan) 5 mg IVPUSH Q6H [facility] Last Admin: 09/23/19 08:00 Dose: 5 mg Documented by: Morphine Sulfate (Morphine) 2 mg IVPUSH ONETIME ONE Stop: 09/14/19 08:15 Last Admin: 09/14/19 08:21 Dose: 2 mg Documented by: Ondansetron HCl (Zofran) 4 mg IVPUSH ONETIME ONE Stop: 09/14/19 08:15 Last Admin: 09/14/19 08:22 Dose: 4 mg Documented by: Ondansetron HCl (Zofran) 4 mg IVPUSH Q4H PRN PRN Reason: Nausea/Vomiting Last Admin: 09/16/19 02:32 Dose: 4 mg Documented by: Pantoprazole Sodium (Protonix Iv) 40 mg IVPUSH Q24H [facility] Last Admin: 09/23/19 15:37 Dose: Not Given Documented by: - Exam Wound/Incisions: Healing Well, Dressing Dry and Intact General: Alert, Oriented GI/Abdominal Exam: Soft, Non-Tender Sepsis Event Note - Evaluation Sepsis Screening Result: No Definite Risk - Focused Exam Vital Signs: Vital Signs Temp Pulse Resp BP Pulse Ox 09/24/19 03:00 97.9 F 77 16 120/75 97 09/24/19 00:00 98.3 F 70 16 131/78 97 09/23/19 21:00 97.5 F 80 16 105/70 96 Date Exam was Performed: 09/24/19 Time Exam was Performed: 08:43 - Problem List Review Problem List Initiated/Reviewed/Updated: Yes - My Orders Last 24 Hours: Active Orders 24 hr Category Date Time Status Dietary Supplements [RC] BIDAC Care 09/23/19 14:39 Active Adult Diet [DIET] Diet 09/23/19 Dinner Active Medication Orders Enoxaparin Sodium (Lovenox) 40 mg SUBCUT DAILY [facility] Last Admin: 09/24/19 08:24 Dose: 40 mg Documented by: Admin: 09/23/19 08:00 Dose: 40 mg Documented by: Admin: 09/22/19 08:14 Dose: 40 mg Documented by: Admin: 09/21/19 10:33 Dose: 40 mg Documented by: Admin: 09/20/19 09:30 Dose: 40 mg Documented by: Admin: 09/19/19 09:12 Dose: 40 mg Documented by: Admin: 09/18/19 09:04 Dose: 40 mg Documented by: Admin: 09/17/19 10:21 Dose: 40 mg Documented by: RANGEL Ketorolac Tromethamine (Toradol) 15 mg IVPUSH Q6H PRN PRN Reason: Abdominal Pain Stop: 09/26/19 09:40 Morphine Sulfate (Morphine) 1 mg IVPUSH Q1H PRN PRN Reason: Abdominal Pain Ondansetron HCl (Zofran) 4 mg IVPUSH Q6H PRN PRN Reason: Nausea/Vomiting Last Admin: 09/19/19 18:46 Dose: 4 mg Documented by: Admin: 09/19/19 09:12 Dose: 4 mg Documented by: Admin: 09/19/19 02:19 Dose: 4 mg Documented by: Admin: 09/18/19 20:34 Dose: 4 mg Documented by: Admin: 09/18/19 07:46 Dose: 4 mg Documented by: Admin: 09/18/19 01:14 Dose: 4 mg Documented by: Admin: 09/17/19 01:49 Dose: 4 mg Documented by: DARIUS Sodium Chloride (Saline Flush) 10 ml FLUSH ASDIRECTED PRN PRN Reason: Keep Vein Open Last Admin: 09/23/19 08:00 Dose: 10 ml Documented by: Admin: 09/21/19 01:53 Dose: 10 ml Documented by: Admin: 09/20/19 19:48 Dose: 10 ml Documented by: Admin: 09/20/19 02:02 Dose: 10 ml Documented by: Admin: 09/20/19 02:01 Dose: 10 ml Documented by: Admin: 09/19/19 20:04 Dose: 10 ml Documented by: Admin: 09/19/19 20:00 Dose: 10 ml Documented by: Admin: 09/19/19 13:22 Dose: 10 ml Documented by: Admin: 09/19/19 02:18 Dose: 10 ml Documented by: Admin: 09/18/19 20:35 Dose: 10 ml Documented by: Admin: 09/18/19 20:11 Dose: 10 ml Documented by: Admin: 09/18/19 01:15 Dose: 10 ml Documented by: Admin: 09/17/19 19:40 Dose: 10 ml Documented by: Admin: 09/17/19 13:54 Dose: 10 ml Documented by: Admin: 09/17/19 01:55 Dose: 10 ml Documented by: Admin: 09/17/19 01:52 Dose: 10 ml Documented by: Admin: 09/16/19 15:19 Dose: 10 ml Documented by: Admin: 09/16/19 02:30 Dose: 10 ml Documented by: Admin: 09/14/19 08:24 Dose: 10 ml Documented by: FISHAMI - Assessment Assessment (Free Text/Narrative):: Doing well - Plan Plan (Free Text/Narrative):: Cont IV Antibiotics
--- NOTE | 2019-09-24 12:27 | PCM.DCSUM1 ---
Discharge Summary - Hospital Course Free Text/Narrative:: Presented to ED on o with abd pain, nausea and vomiting. CT showed SBO Brief History: Patient was admitted with IV hydration abd NG suction. Pain increased after 2 days and was brought to the OR for Expl Lap and adhesiolysis. Post odid well other than a porlonged ileus for several days. NG was removed after 6 days when bowel fuction improved. Started on liquids and is now tolerating diet well. Incision healing well. - Discharge Data Discharge Date: 09/24/19 Discharge Disposition: Home, Self-Care 01 Condition: Good - Referral to Home Health Primary Care Physician: Stella Tapia NP [facility], f/u next Tu09/27 for suture removal - Patient Summary/Data Operative Procedure(s) Performed: Expl lap with Adhesiolysis Recommended Follow-up Testing/Procedures: 09/28/19 - Patient Instructions Diet: Usual Diet as Tolerated Activity: No Lifting Over 20 Pounds (for 4 weeks) Showering/Bathing: August Shower Wound/Incision Care: Keep Operative Site/Wound Site Clean and Dry - Discharge Plan Home Medications: Home Meds Bifidobacterium Infantis [Align] 1 tab PO DAILY 09/14/19 [History] Calcium Carb/Vitamin D3/Vit K1 [Calcium + D Soft Chewable Tab] 2 tab PO DAILY 09/14/19 [History] Estrogens, Conjugated [Premarin] 0.625 mg PO DAILY 09/14/19 [History] Folic Acid/Multivit-Min/Lutein [Multi-Vitamin Gummies] 2 tab PO DAILY 09/14/19 [History] Lysine 1 tab PO DAILY PRN 09/14/19 [History] estradioL [Estring] 2 mg VAG Q3M 09/14/19 [History] Patient Handouts: Bowel Obstruction, [id number], Exploratory Laparotomy, Adult, Care After, Fall Prevention in Hospitals, Adult, Venous Thromboembolism Prevention Forms: ED Department Discharge Referrals: Stella Tapia [employer] [Primary Care Provider] - - Discharge Summary/Plan Comment DC Time >30 min.: No - Patient Data Vitals - Most Recent: Last Vital Signs Temp 98.1 F 09/24/19 08:00 Pulse 90 09/24/19 08:00 Resp 16 09/24/19 08:00 BP 121/81 06/19/20 08:00 Pulse Ox 95 09/24/19 08:00 Weight - Most Recent: 74.446 kg I&O - Last 24 hours: Intake & Output 09/23/19 09/24/19 09/24/19 22:59 06:59 14:59 Intake Total 200 200 Output Total 200 600 300 Balance 0 -400 -300 Med Orders - Current: Current Medications Enoxaparin Sodium (Lovenox) 40 mg SUBCUT DAILY [facility] Last Admin: 09/24/19 08:24 Dose: 40 mg Documented by: Ketorolac Tromethamine (Toradol) 15 mg IVPUSH Q6H PRN PRN Reason: Abdominal Pain Stop: 09/26/19 09:40 Morphine Sulfate (Morphine) 1 mg IVPUSH Q1H PRN PRN Reason: Abdominal Pain Ondansetron HCl (Zofran) 4 mg IVPUSH Q6H PRN PRN Reason: Nausea/Vomiting Last Admin: 09/19/19 18:46 Dose: 4 mg Documented by: Sodium Chloride (Saline Flush) 10 ml FLUSH ASDIRECTED PRN PRN Reason: Keep Vein Open Last Admin: 09/23/19 08:00 Dose: 10 ml Documented by: Discontinued Medications Cefoxitin Sodium (Mefoxin) 2 gm IVPUSH ONETIME ONE Stop: 09/16/19 07:25 Last Admin: 09/16/19 09:41 Dose: Not Given Documented by: Sodium Chloride (Normal Saline) 1,000 mls @ 999 mls/hr IV ASDIRECTED [facility] Last Admin: 09/14/19 08:19 Dose: 999 mls/hr Documented by: Sodium Chloride (Normal Saline) 1,000 mls @ 150 mls/hr IV ASDIRECTED [facility] Last Admin: 09/14/19 09:57 Dose: 150 mls/hr Documented by: Sodium Chloride (Normal Saline) 1,000 mls @ 150 mls/hr IV ASDIRECTED [facility] Last Admin: 09/15/19 05:20 Dose: 150 mls/hr Documented by: Potassium Cl/Dextrose/Lact Ringer's (D5 Lr With 20 Meq Kcl) 1,000 mls @ 50 mls/hr IV Q8H [facility] Last Infusion: 09/15/19 17:22 Dose: 50 mls/hr Documented by: Potassium Cl/Dextrose/Lact Ringer's (D5 Lr With 20 Meq Kcl) 1,000 mls @ 100 mls/hr IV ASDIRECTED [facility] Stop: 09/16/19 08:30 Last Infusion: 09/16/19 07:48 Dose: Infused Documented by: Potassium Cl/Dextrose/Lact Ringer's (D5 Lr With 20 Meq Kcl) 1,000 mls @ 100 mls/hr IV Q10H [facility] Last Admin: 09/16/19 10:58 Dose: Not Given Documented by: Lactated Ringer's (Ringers, Lactated) 1,000 mls @ 75 mls/hr IV ASDIRECTED [facility] Last Admin: 09/22/19 02:43 Dose: 75 mls/hr Documented by: Potassium Cl/Dextrose/Lact Ringer's (D5 Lr With 20 Meq Kcl) 1,000 mls @ 150 mls/hr IV Q10H [facility] Stop: 09/17/19 19:59 Last Admin: 09/17/19 18:45 Dose: Not Given Documented by: Sodium Chloride (Normal Saline) 500 mls @ 167 mls/hr IV ONETIME ONE Stop: 09/17/19 01:16 Last Admin: 09/16/19 22:26 Dose: 167 mls/hr Documented by: Sodium Chloride (Normal Saline) 500 mls @ 999 mls/hr IV .BOLUS ONE Stop: 09/17/19 08:30 Last Admin: 09/17/19 07:58 Dose: 999 mls/hr Documented by: Potassium Cl/Dextrose/Lact Ringer's (D5 Lr With 20 Meq Kcl) 1,000 mls @ 150 mls/hr IV Q7H [facility] Last Admin: 09/19/19 15:41 Dose: Not Given Documented by: Potassium Cl/Dextrose/Lact Ringer's (D5 Lr With 20 Meq Kcl) 1,000 mls @ 100 mls/hr IV Q10H [facility] Last Infusion: 09/23/19 09:42 Dose: 0 mls/hr Documented by: Iopamidol (Isovue-370 (76%)) 100 ml IV . DIRECTED ONE Stop: 09/14/19 08:33 Last Admin: 09/14/19 08:48 Dose: 79 ml Documented by: Ketorolac Tromethamine (Toradol) 30 mg IVPUSH Q6H PRN PRN Reason: Abdominal Pain Stop: 09/19/19 12:39 Last Admin: 09/16/19 02:30 Dose: 30 mg Documented by: Ketorolac Tromethamine (Toradol) 30 mg IVPUSH Q6H [facility] Stop: 09/21/19 08:59 Last Admin: 09/16/19 11:32 Dose: Not Given Documented by: Ketorolac Tromethamine (Toradol) 30 mg IVPUSH Q6H [facility] Stop: 09/21/19 07:59 Last Admin: 09/21/19 01:53 Dose: 30 mg Documented by: Lidocaine HCl (Glydo) 6 ml .XX NOW STA Stop: 09/14/19 09:27 Last Admin: 09/14/19 09:20 Dose: 6 ml Documented by: Metoclopramide HCl (Reglan) 5 mg IVPUSH Q6H [facility] Last Admin: 09/23/19 08:00 Dose: 5 mg Documented by: Morphine Sulfate (Morphine) 2 mg IVPUSH ONETIME ONE Stop: 09/14/19 08:15 Last Admin: 09/14/19 08:21 Dose: 2 mg Documented by: Ondansetron HCl (Zofran) 4 mg IVPUSH ONETIME ONE Stop: 09/14/19 08:15 Last Admin: 09/14/19 08:22 Dose: 4 mg Documented by: Ondansetron HCl (Zofran) 4 mg IVPUSH Q4H PRN PRN Reason: Nausea/Vomiting Last Admin: 09/16/19 02:32 Dose: 4 mg Documented by: Pantoprazole Sodium (Protonix Iv) 40 mg IVPUSH Q24H [facility] Last Admin: 09/23/19 15:37 Dose: Not Given Documented by:
== END 2019-09-24 15:22 | disposition home or self-care (01) | DRG 224 ==
LOC: FB.ED 08:05 → FB.MS 10:17 → OBSVTOIN 14:37
PROVIDERS: ADMIT Emergency Medicine; ATTEND Surgery
PROC: 0DN80ZZ Release Small Intestine, Open Approach (ICD-10-PCS; principal; 2019-09-16)
DX: K56.50 Intestinal adhesions [bands], unspecified as to partial versus complete obstruction (principal); Z90.49 Acquired absence of other specified parts of digestive tract; Z90.710 Acquired absence of both cervix and uterus
CPT/HCPCS: 36415; 43752; 71045; 74018; 74019; 74177; 80048; 80053; 82150; 83605; 83690; 83880; 84484; 85025; 85027; 85379; 85610; 85730; 93005; 94150; 96361; 96374; 96375; 99285-25; A9270-GY; C9113; J0694; J1100; J1170; J1650; J1885; J2250; J2270; J2405; J2704; J2765; J3010; J3480; J3490; J7030; J7040; J7120; Q9967; U0002

== ENCOUNTER 2019-11-18 06:45 | Day surgery (SDC) | payer BC ==
[2019-11-18] MEDS ORDERED: Lidocaine 1% PF 2 ML SDV IV ONE (06:46)
[2019-11-18] MEDS ORDERED: Propofol 200 MG/20 ML SDV IV ONE (06:46)
[2019-11-18] MEDS ORDERED: Lactated Ringers 1,000 ML IV SCH (08:00)
[2019-11-18] MEDS ORDERED: Sodium Chloride 0.9% 10 ML Syringe FLUSH PRN (08:00)
--- NOTE | 2019-11-18 08:38 | PCM.OPNOTE ---
- General Post-Op/Procedure Note Date of Surgery/Procedure: 11/18/19 Operative Procedure(s): Colonoscopy Findings: Normal Pre Op Diagnosis: Screening Post-Op Diagnosis: Same Anesthesia Technique: MAC Primary Surgeon: Tha Kolb Complications: None Condition: Good
--- NOTE | 2019-11-18 08:41 | PCM.HP.2 ---
H&P History of Present Illness - General Date of Service: 11/18/19 Admit Problem/Dx: Admission Diagnosis/Problem Admission Diagnosis/Problem Colonoscopy Source of Information: Patient, Old Records History Limitations: Reports: No Limitations - History of Present Illness Initial Comments - Free Text/Narative: Here for screening colonoscopy - Related Data Allergies/Adverse Reactions: Allergies Allergy/AdvReac Type Severity Reaction Status Date / Time fluoxetine [From Prozac] Allergy Other Verified 11/18/19 07:30 Home Medications: Home Meds Bifidobacterium Infantis [Align] 1 tab PO DAILY 09/14/19 [History] Calcium Carb/Vitamin D3/Vit K1 [Calcium + D Soft Chewable Tab] 2 tab PO DAILY 09/14/19 [History] Folic Acid/Multivit-Min/Lutein [Multi-Vitamin Gummies] 2 tab PO DAILY 09/14/19 [History] Lysine 1 tab PO DAILY PRN 09/14/19 [History] estradioL [Estring] 2 mg VAG Q3M 09/14/19 [History] Past Medical History HEENT History: Reports: Impaired Vision Cardiovascular History: Reports: None Respiratory History: Reports: None Gastrointestinal History: Reports: Bowel Obstruction, Irritable Bowel Syndrome Genitourinary History: Reports: None 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: Neurological History: Reports: None Psychiatric History: Reports: None Endocrine/Metabolic History: Reports: None Hematologic History: Reports: None Immunologic History: Reports: None Oncologic (Cancer) History: Reports: None Dermatologic History: Reports: None - Infectious Disease History Infectious Disease History: Reports: Chicken Pox - Past Surgical History Head Surgeries/Procedures: Reports: None HEENT Surgical History: Reports: None Cardiovascular Surgical History: Reports: None Respiratory Surgical History: Reports: None GI Surgical History: Reports: Cholecystectomy, Colonoscopy, Other (See Below) Other GI Surgeries/Procedures: LAPAROTOMY TO REMOVE ADHESIONS Female Surgical History: Reports: Hysterectomy Endocrine Surgical History: Reports: None Neurological Surgical History: Reports: None Musculoskeletal Surgical History: Reports: Shoulder Surgery, Other (See Below) Other Musculoskeletal Surgeries/Procedures:: Shoulder surgery x2. CARPAL TUNNEL RELEASE LEFT Oncologic Surgical History: Reports: None Dermatological Surgical History: Reports: None Social & Family History - Family History Family Medical History: Noncontributory - Tobacco Use Smoking Status *Q: Never Smoker - Caffeine Use Caffeine Use: Reports: Tea - Recreational Drug Use Recreational Drug Use: No H&P Review of Systems - Review of Systems: Review Of Systems: Comprehensive ROS is negative, except as noted in HPI. Exam - Exam Exam: See Below - Vital Signs Vital Signs: Last Vital Signs Temp 97.7 F 11/18/19 07:13 Pulse 54 L 11/18/19 07:13 Resp 16 11/18/19 07:13 BP 132/87 11/18/19 07:13 Pulse Ox 99 11/18/19 07:13 Weight: 69.899 kg - Exam Lungs: Clear to Auscultation, Normal Respiratory Effort Cardiovascular: Regular Rate, Regular Rhythm GI/Abdominal Exam: Soft, Non-Tender Sepsis Event Note - Focused Exam Vital Signs: Vital Signs Temp Pulse Resp BP Pulse Ox 11/18/19 07:13 97.7 F 54 L 16 132/87 99 Problem List Initiated/Reviewed/Updated: Yes Orders Last 24hrs: Active Orders 24 hr Category Date Time Status Patient Status [ADT] Routine ADT 11/18/19 08:00 Active Patient to Empty Bladder [RC] ASDIRECTED Care 11/17/19 15:19 Active Ready for Discharge [RC] PER UNIT ROUTINE Care 11/18/19 08:39 Ordered Verify Patient Consent Obtain [RC] ASDIRECTED Care 11/18/19 08:00 Active Nothing Per Oral Diet [DIET] Diet 11/17/19 Dinner Ordered Lactated Ringers [Ringers, Lactated] 1,000 ml Med 11/18/19 08:00 Active IV ASDIRECTED Sodium Chloride 0.9% [Saline Flush] Med 11/18/19 08:00 Active 10 ml FLUSH ASDIRECTED PRN Peripheral IV Insertion Adult [OM.PC] Routine Oth 11/17/19 15:19 Ordered Resuscitation Status Routine Resus Stat 11/17/19 15:19 Ordered Medication Orders Lactated Ringer's (Ringers, Lactated) 1,000 mls @ 125 mls/hr IV ASDIRECTED [facility] Last Admin: 11/18/19 07:37 Dose: 125 mls/hr Documented by: ROSANGELA Sodium Chloride (Saline Flush) 10 ml FLUSH ASDIRECTED PRN PRN Reason: Keep Vein Open Assessment/Plan Comment:: Colon Screening; ok to proceed
--- NOTE | 2019-11-18 15:10 | OR ---
DATE OF OPERATION: 11/18/2019 SURGEON: Tha Kolb MD PREOPERATIVE DIAGNOSIS: Colon screening. POSTOPERATIVE DIAGNOSIS: Normal colonoscopy. PROCEDURE: Colonoscopy. ANESTHESIA: IV sedation. DESCRIPTION OF PROCEDURE: The patient was brought to the procedure room where she was placed on the left side and IV sedation administered. Digital rectal exam was performed, which was normal. The colonoscope was inserted and advanced to the level of the cecum without difficulty. Cecal position was confirmed by identifying the appendiceal lumen and the ileocecal valve. Prep was good and surfaces were well visualized. Upon withdrawing the scope, the ascending, transverse, and descending colon were normal in appearance. The sigmoid colon and rectum were normal. Retroflexion was normal. Air was removed and the scope withdrawn. The patient tolerated the procedure well and returned to recovery in stable condition. Recommend routine colon screening again in 10 years. /[id number] BREE/MATTY
== END 2019-11-18 09:24 | disposition home or self-care (01) ==
LOC: FB.SDS 06:45
PROVIDERS: ATTEND Surgery
DX: Z12.11 Encounter for screening for malignant neoplasm of colon (principal); F41.9 Anxiety disorder, unspecified; Z88.8 Allergy status to other drugs, medicaments and biological substances; Z79.899 Other long term (current) drug therapy
CPT/HCPCS: 45378; J2001; J2704; J7120; 00812-QZ